=== PATIENT | male | born 1930 | race Caucasian/White ===

== ENCOUNTER 2017-03-01 18:34 | Inpatient (IN) ==
--- NOTE | 2017-03-01 18:37 | Emergency Department Note ---
Disposition Clinical Impression: Chest pain, Elevated troponin Disposition: Admitted As Inpatient Condition: Good General Adult HPI - General Chief complaint: ED Chest Pain Stated complaint: CP Time Seen by Provider: 03/01/17 18:36 - Related Data Home Medications Medication Instructions Recorded Confirmed Calcium Carbonate/Vitamin D3 1 each PO DAILY 04/18/16 04/18/16 [Calcium 600 + Vit D Softgel] Glucosamn/Condroitn/C/Mn/[place] 1 each PO DAILY 04/18/16 04/18/16 [Cvs Glucosamine Chondroitin Tb] Multivitamin [Multi-Day Vitamins] 1 each PO DAILY 04/18/16 04/18/16 Allergies Allergy/AdvReac Type Severity Reaction Status Date / Time codeine AdvReac Unknown other Verified 04/18/16 10:30 Course Vital Signs Temperature 98.2 F 03/01/17 18:38 Pulse Rate 63 03/01/17 18:38 Respiratory Rate 16 03/01/17 18:38 Blood Pressure 142/78 03/01/17 18:38 O2 Sat by Pulse Oximetry 96 03/01/17 18:38 Temperature 97.8 F 03/01/17 20:32 Pulse Rate 60 03/01/17 20:32 Respiratory Rate 16 03/01/17 20:32 Blood Pressure 145/83 03/01/17 20:32 O2 Sat by Pulse Oximetry 95 03/01/17 20:32 Oxygen Delivery Oxygen Delivery Room Air Medical Decision Making - Lab Data Result diagrams: 03/01/17 19:00 03/01/17 19:00 Lab Results 03/01/17 03/01/17 03/01/17 Range/Units 18:58 19:00 19:00 WBC 7.9 (4.3-11.1) K/mcL RBC 5.19 (4.19-5.50) M/mcL Hgb 15.8 (12.9-16.9) g/dL Hct 47.9 (37.5-50.1) % MCV 92.3 (83.0-100.0) fL MCH 30.4 (28.0-33.3) pg MCHC 33.0 (31.6-35.5) g/dL RDW 13.2 (11.5-14.5) % Plt Count 233 (140-400) K/mcL MPV 9.0 L (9.4-12.4) fL Immature Gran % 0.4 (0-4) % Seg Neutrophils % 66.3 % Lymphocytes % 23.3 % Monocytes % 7.3 % Eosinophils % 2.1 % Basophils % 0.6 % Neutrophils # 5.3 (1.6-8.9) K/mcL Lymphocytes # 1.9 (0.6-4.6) K/mcL Monocytes # 0.6 (0.0-1.3) K/mcL Eosinophils # 0.2 (0.0-0.6) K/mcL Basophils # 0.1 (0.0-0.2) K/mcL Immature Plt Fraction 2.2 (1.1-6.1) % PT 11.8 (9.4-12.1) Seconds INR 1.1 APTT 33.0 (26.0-36.0) Seconds Sodium 141 (136-145) mEq/L Potassium 4.0 (3.5-4.5) mEq/L Chloride 107 (98-109) mEq/L Carbon Dioxide 25 (19-29) mEq/L BUN 27 H (8-26) mg/dL Creatinine 1.22 (0.72-1.25) mg/dL Est GFR ( Amer) > 60 (> 60) Est GFR (Non-Af Amer) 57 L (> 60) BUN/Creatinine Ratio 22 (6-26) Glucose 103 H (70-99) mg/dL Calculated Osmolality 297 (280-300) Calcium 10.4 (8.6-10.8) mg/dL Troponin I (0-0.03) ng/mL 03/01/17 Range/Units 19:00 WBC (4.3-11.1) K/mcL RBC (4.19-5.50) M/mcL Hgb (12.9-16.9) g/dL Hct (37.5-50.1) % MCV (83.0-100.0) fL MCH (28.0-33.3) pg MCHC (31.6-35.5) g/dL RDW (11.5-14.5) % Plt Count (140-400) K/mcL MPV (9.4-12.4) fL Immature Gran % (0-4) % Seg Neutrophils % % Lymphocytes % % Monocytes % % Eosinophils % % Basophils % % Neutrophils # (1.6-8.9) K/mcL Lymphocytes # (0.6-4.6) K/mcL Monocytes # (0.0-1.3) K/mcL Eosinophils # (0.0-0.6) K/mcL Basophils # (0.0-0.2) K/mcL Immature Plt Fraction (1.1-6.1) % PT (9.4-12.1) Seconds INR APTT (26.0-36.0) Seconds Sodium (136-145) mEq/L Potassium (3.5-4.5) mEq/L Chloride (98-109) mEq/L Carbon Dioxide (19-29) mEq/L BUN (8-26) mg/dL Creatinine (0.72-1.25) mg/dL Est GFR ( Amer) (> 60) Est GFR (Non-Af Amer) (> 60) BUN/Creatinine Ratio (6-26) Glucose (70-99) mg/dL Calculated Osmolality (280-300) Calcium (8.6-10.8) mg/dL Troponin I 0.18 H* (0-0.03) ng/mL Critical Care Time Critical Care Time: Yes Total Critical Care Time: 30 Attestation: Patient presented with chest pain. Troponin elevated. Telephone consultation with the leather dresser. Low-dose heparin drip ordered. Admitted to the medicine service Attestation Statement - Attestation Attestation: I examined this patient and my medical decision-making was reviewed with the EXAMINATION GRADER/PA/Advanced Practice Nurse/Resident Physician. I agree with the documented findings, disposition and treatment plan as described except to the extent set forth below. [id number] time provided in conjunction with Dr. Landeros Patient presents via EMS from home with complaints of chest pain. Aspirin and nitroglycerin administered prehospital. EKG reviewed by me. Patient appears in no acute distress on exam
--- NOTE | 2017-03-01 18:46 | Emergency Department Note ---
Disposition Clinical Impression: Elevated troponin Chest pain Qualifiers: Chest pain type: unspecified Qualified Code(s): R07.9 - Chest pain, unspecified Disposition: Admitted As Inpatient Condition: Good Referrals: Partha Walker Jr, MD [Primary Care Provider] - Forms: ED Satisfaction Letter Time of Disposition: 19:45 Chest Pain HPI - General Chief Complaint: ED Chest Pain Stated Complaint: CP Time Seen by Provider: 03/01/17 18:36 Vital Signs Reviewed: Yes Nursing Notes Reviewed: Yes - History of Present Illness HPI Narrative: Patient planning of chest pain that began this morning. Was relieved with 3 nitroglycerin and 4 baby aspirin. States it started in his back and radiates up to his chest. Denies any cardiac history. He was arrested this began. Denies any Provoking factors. Denies any associated shortness of breath nausea vomiting or diaphoresis. - Related Data Home Medications Medication Instructions Recorded Confirmed Calcium Carbonate/Vitamin D3 1 each PO DAILY 04/18/16 04/18/16 [Calcium 600 + Vit D Softgel] Glucosamn/Condroitn/C/Mn/[place] 1 each PO DAILY 04/18/16 04/18/16 [Cvs Glucosamine Chondroitin Tb] Multivitamin [Multi-Day Vitamins] 1 each PO DAILY 04/18/16 04/18/16 Allergies Allergy/AdvReac Type Severity Reaction Status Date / Time codeine AdvReac Unknown other Verified 04/18/16 10:30 All systems ED: reviewed and negative except as stated. Constitutional: Denies: fever, chills ENT ED: Denies: ear pain, throat pain, congestion Cardiovascular: Reports: chest pain (Started in his back radiated to his chest.) . Denies: palpitations, dyspnea on exertion, syncope Respiratory: Denies: cough, dyspnea, wheezes Gastrointestinal: Denies: abdominal pain, nausea, vomiting, diarrhea, hematemesis, melena, hematochezia Genitourinary: Denies: urgency, dysuria, frequency Musculoskeletal: Reports: back pain (Between the shoulder blades.). Denies: neck pain Integumentary: Denies: rash, abrasion Neurological: Denies: headache, weakness Chest Pain PMH - Past Medical History Medical history: Reports: other (Lymphoma) Physical Exam - General Limitations: no limitations General appearance: alert, in no apparent distress - Head Head exam: atraumatic, normocephalic, normal inspection - Eye Eye exam: Present: normal appearance, PERRL, EOMI. Absent: scleral icterus - ENT ENT exam: normal exam, normal oropharynx, mucous membranes moist - Neck Neck exam: Present: normal inspection, full ROM, trachea midline. Absent: tenderness, lymphadenopathy - Chest Chest inspection: Present: normal inspection, symmetric chest wall rise. Absent : tenderness - Respiratory Respiratory exam: Present: normal lung sounds bilaterally. Absent: respiratory distress - Cardiovascular Cardiovascular exam: Present: regular rate, normal rhythm, normal heart sounds - Abdominal Exam Abdominal exam: Present: soft, Non-Tender, normal bowel sounds. Absent: tenderness, distention, guarding, rebound, rigidity, organomegaly - Extremities Exam Extremities exam: Present: normal inspection, full ROM, normal capillary refill. Absent: tenderness, pedal edema - Back Exam Back exam: Present: normal inspection, full ROM, other (No pain on palpation. Cannot reproduce his back pain.). Absent: tenderness, CVA tenderness (R), CVA tenderness (L), muscle spasm, paraspinal tenderness - Neurological Exam Neurological exam: Present: alert, oriented X3 - Psychiatric Psychiatric exam: Present: normal affect, normal mood - Skin Skin exam: Present: warm, dry, intact, normal color. Absent: rash, cyanosis, diaphoresis Course Course Narrative: Patient brought in by EMS with the complaints of chest pain. He states he woke up this morning with pain in his back that radiated down to his left chest. States that he has been seeing Drs. Nation for this but has not had a cardiac workup yet. He has an appointment next week. He states he did take 3 nitroglycerin and 4 baby aspirin prior to arrival here with relief of the pain. He states it still aches in his back. He is refusing pain medication at this time. We will do a cardiac workup on the patient while he is here. We will Likely admit him. On exam his lung sounds are clear heart tones are normal and abdomen is soft and nontender. He does have a history of lymphoma. He states he has no other cardiac histories. He has no edema to his extremities. He denies any shortness of breath or diaphoresis associated with this chest pain. - Reevaluation(s) Reevaluation #1: Patient does not have active chest pain at this time. However his troponin is increased. He also has ST depression and T-wave inversion in leads V4 and V5. We will contact the on-call health information managers to discuss this with her. Patient will be admitted to the hospital. Time: 19:36 Reevaluation #2: After speaking with a health information managers she recommends to heparinize the patient. His platelets are normal and hemoglobin is normal. He has no signs of active bleeding. We will heparinize him and admitted to the hospitalist. Time: 19:44 - Consultations Consultation #1: Spoke with Dr. Nation. She suggests that we start the Pt on a Heparin drip and admitted to the hospitalist. Time: 19:43 Vital Signs Temperature 98.2 F 03/01/17 18:38 Pulse Rate 63 03/01/17 18:38 Respiratory Rate 16 03/01/17 18:38 Blood Pressure 142/78 03/01/17 18:38 O2 Sat by Pulse Oximetry 96 03/01/17 18:38 Temperature 98.2 F 03/01/17 18:38 Pulse Rate 62 03/01/17 19:29 Respiratory Rate 16 03/01/17 19:29 Blood Pressure 109/65 03/01/17 19:29 O2 Sat by Pulse Oximetry 94 03/01/17 19:29 Oxygen Delivery Oxygen Delivery Nasal Cannula Chest Pain - Medical Records Medical records reviewed: Yes I reviewed the patient's medical records. - Lab Data Lab results reviewed: Yes I reviewed the patient's lab results. Result diagrams: 03/01/17 19:00 03/01/17 19:00 Lab Results 03/01/17 03/01/17 03/01/17 Range/Units 19:00 19:00 19:00 WBC 7.9 (4.3-11.1) K/mcL RBC 5.19 (4.19-5.50) M/mcL Hgb 15.8 (12.9-16.9) g/dL Hct 47.9 (37.5-50.1) % MCV 92.3 (83.0-100.0) fL MCH 30.4 (28.0-33.3) pg MCHC 33.0 (31.6-35.5) g/dL RDW 13.2 (11.5-14.5) % Plt Count 233 (140-400) K/mcL MPV 9.0 L (9.4-12.4) fL Immature Gran % 0.4 (0-4) % Seg Neutrophils % 66.3 % Lymphocytes % 23.3 % Monocytes % 7.3 % Eosinophils % 2.1 % Basophils % 0.6 % Neutrophils # 5.3 (1.6-8.9) K/mcL Lymphocytes # 1.9 (0.6-4.6) K/mcL Monocytes # 0.6 (0.0-1.3) K/mcL Eosinophils # 0.2 (0.0-0.6) K/mcL Basophils # 0.1 (0.0-0.2) K/mcL Immature Plt Fraction 2.2 (1.1-6.1) % Sodium 141 (136-145) mEq/L Potassium 4.0 (3.5-4.5) mEq/L Chloride 107 (98-109) mEq/L Carbon Dioxide 25 (19-29) mEq/L BUN 27 H (8-26) mg/dL Creatinine 1.22 (0.72-1.25) mg/dL Est GFR ( Amer) > 60 (> 60) Est GFR (Non-Af Amer) 57 L (> 60) BUN/Creatinine Ratio 22 (6-26) Glucose 103 H (70-99) mg/dL Calculated Osmolality 297 (280-300) Calcium 10.4 (8.6-10.8) mg/dL Troponin I 0.18 H* (0-0.03) ng/mL - Radiology Data Radiology results reviewed: Yes I reviewed the patient's radiology results. Chest X-Ray 03/01/17 18:41 IMPRESSION: No acute process. D/ / John Araya MD / John Araya MD Interpreting Provider: John Araya MD - EKG Data EKG attestation: Yes I reviewed and interpreted this EKG. EKG results narrative: Normal sinus rhythm at a rate of 63. The ND interval is 156. QRS duration is 139. QT is 399. QTC is 407. Patient has had a right bundle gale block. He has new ST depression and T-wave inversion in leads V4 and V5. There are no other changes from previous EKG dated 12/08/2013. Heart Score - Score History: Moderately Suspicious EKG: Significant ST-Depression Age: Greater than 65 Risk Factors: No risk factors known Troponin: 1-3x normal limit HEART Score Total: 6
[2017-03-01 19:14] LABS: Basophils # 0.1 K/mcL (0.0-0.2); Basophils % 0.6 %; Eosinophils # 0.2 K/mcL (0.0-0.6); Eosinophils % 2.1 %; Hematocrit 47.9 % (37.5-50.1); Hemoglobin 15.8 g/dL (12.9-16.9); Immature Granulocytes % 0.4 % (0-4); Immature Platelets 2.2 % (1.1-6.1); Lymphocytes # 1.9 K/mcL (0.6-4.6); Lymphocytes % 23.3 %; Mean Corpuscular Hemoglobin 30.4 pg (28.0-33.3); Mean Corpuscular Volume 92.3 fL (83.0-100.0); Monocytes # 0.6 K/mcL (0.0-1.3); Monocytes % 7.3 %; Neutrophils # 5.3 K/mcL (1.6-8.9); Platelet Count 233 K/mcL (140-400); Red Blood Count 5.19 M/mcL (4.19-5.50); Red Cell Distribution Width 13.2 % (11.5-14.5); Segmented Neutrophils % 66.3 %
[2017-03-01 19:25] LABS: BUN/Creatinine Ratio 22 (6-26); Blood Urea Nitrogen 27 mg/dL (8-26); Calcium 10.4 mg/dL (8.6-10.8); Carbon Dioxide 25 mEq/L (19-29); Chloride 107 mEq/L (98-109); Glucose 103 mg/dL (70-99); Osmolality,Calculated 297 (280-300); Sodium 141 mEq/L (136-145); eGFR For African Americans > 60 (> 60); eGFR For Non-African Americans 57 (> 60)
[2017-03-01] MEDS ORDERED: *HR* Heparin 5,000 UNIT/ML VIAL IVP PRN ×2 (19:42)
[2017-03-01] MEDS ORDERED: Heparin 25,000 UNIT/500 ML D5W 25,000 UNIT/500 ML MLS IVC SCH (19:45)
[2017-03-01 20:04] LABS: INR 1.1; Prothrombin Time 11.8 Seconds (9.4-12.1)
[2017-03-01] MEDS ORDERED: Aspirin 325 MG TABLET PO ONE (21:25)
[2017-03-01] MEDS ORDERED: Naloxone 0.4 MG/ML INJ IVP PRN (21:26)
[2017-03-01] MEDS ORDERED: *HR* Morphine 2 MG/ML SYRINGE IVP PRN (21:26)
[2017-03-01] MEDS ORDERED: Ondansetron 4 MG/2 ML VIAL IVP PRN (21:26)
[2017-03-01] MEDS ORDERED: Nitroglycerin 0.4 MG TAB.SUBL SL PRN (21:33)
[2017-03-01] MEDS ORDERED: Melatonin 3 MG TABLET PO PRN (22:20)
[2017-03-01] MEDS ORDERED: *HR* Ticagrelor 90 MG TABLET PO ONE ×2 (23:22→23:45)
--- NOTE | 2017-03-01 23:27 | Event Note ---
Date of Encounter: 03/01/17 Time of Encounter: 23:22 I examined this patient and my medical decision-making was reviewed with . I agree with the documented findings, disposition and treatment plan as described except to the extent set forth below. Briefly, 86-year-old with no significant past medical history except lymphoma for which he received surgery and chemotherapy about 9 years ago presented to the hospital due to back pain. In the emergency room, further workup revealed EKG changes with ST depressions in lateral leads and elevated troponin level. Cardiology was consulted and the patient is been heparinized for non-STEMI. He has been admitted for the same. On exam, the patient was playing banjo and singing when I entered the room. Clear breath sounds bilaterally. No reproducible chest wall tenderness. First and second heart sounds present. Regular rate and rhythm. EKG personally reviewed-ST depressions of more than 2 mm in V3 to V5 with T- wave inversions in leads V3 to V6. Labs reviewed. Assessment/plan: 1. Keq-[id number] score of 5. Patient will be admitted to the hospital to inpatient status. Telemetry. Expected to be in the hospital for at least 2 midnights. Expected discharge disposition is to home. High risk due to risk of lethal arrhythmias and the need to be on heparin drip which needs close monitoring and adjustment of the dose. Continue aspirin, statin, Plavix and heparin. Hold beta porfirio due to borderline low heart rate. Cardiology consult. Echocardiogram. Possible left heart catheter tomorrow. 2. History of lymphoma 3. Full code ASH [place]
--- NOTE | 2017-03-01 23:33 | Internal Med History&Physical ---
Date of Encounter: 03/01/17 Time of Encounter: 23:30 Assessment and Plan (1) NSTEMI (non-ST elevated myocardial infarction) Current visit: Yes Status: Acute Patient presents with typical chest pain, elevated troponin at 0.18, EKG showing ST depression in leads V2 through V6, most pronounced in leads V4 and V5.. CARLITOS score 5 making him high risk likely requiring angiography. Patient took aspirin 325 mg prior to arrival. Patient is on heparin drip, will give Brilinta 180 mg once. Transient prominence, echo ordered. Cardiology consult, patient will likely require left heart cath tomorrow. We will make nothing by mouth at midnight. (2) Lymphoma Current visit: Yes Status: Acute In remission. Currently not undergoing treatment. Qualifiers: Lymphoma type: unspecified type Lymphoma site: unspecified region Qualified Code(s): C85.90 - Non-Hodgkin lymphoma, unspecified, unspecified site (3) DVT prophylaxis Current visit: Yes Status: Acute Patient is on therapeutic heparin drip so there is no indication for prophylaxis at this time Internal Medicine - H&P: HPI Chief complaint: Chest pain Admitted From: Emergency Dept Plans for Post Hospital Care: Home History of present illness: Mr. Garcia is a 86 year old male with history of lymphoma presents with chest discomfort. Patient states this pain began this morning while he was sitting watching TV. He states the pain initially began on the left side of his back and radiated around to the left side of his chest. Patient states that the pain worsened throughout the day and he eventually took nitroglycerin which greatly improved his pain. Patient states he did not get up and exert himself much today but the pain did not seem to change with exertion. He could not characterize the pain any further. He denies shortness of breath, diaphoresis, nausea, vomiting. Patient states he had a pain in the right side of his chest approximately 2 weeks ago that does not feel similar to this. He saw his PCP at that time he was concerned for cardiac origin of his chest pain. Denies fever, chills, abdominal pain, nausea, vomiting, diarrhea, dysuria, lower extremity swelling. Past Med Surg Social Fam HX - Past Medical History Medical history: arthritis, cancer, coronary artery disease, hypertension, other Psychiatric history: no psych history - Past Surgical History Surgical History: cancer surgery (Removal of small bowel obstruction due to lymphoma) - Social History Smoking Status: Never smoker Smokeless Tobacco Status: No Alcohol use: none Drug use: none - Family History Mother History Unknown: Yes Name: Perry Gomez Age at : 82 Internal Medicine - H&P: Meds Calcium Carbonate/Vitamin D3 [Calcium 600 + Vit D Softgel] 1 each PO DAILY 04/18 [History] Glucosamn/Condroitn/C/Mn/[place] [Cvs Glucosamine Chondroitin Tb] 1 each PO DAILY 04/18/16 [History] Multivitamin [Multi-Day Vitamins] 1 each PO DAILY 04/18/16 [History] Allergies codeine Adverse Reaction (Unknown, Verified 04/18/16 10:30) other feels like he is floating All Systems PM: A 10-system review of systems was performed and is negative for pertinent findings except as documented above in the HPI. - Constitutional Constitutional: no chills, no fever(s) - EENT Eyes: no blurry vision, no change in vision Nose, mouth and throat: no sinus pain, no sinus pressure, no sore throat - Cardiovascular Cardiovascular ROS IM: chest pain, no dyspnea, no edema, no lightheadedness, no palpitations, no syncope - Respiratory Respiratory: no cough, no dyspnea, no hemoptysis, no chest congestion, no excessive phlegm production, no change in phlegm color - Gastrointestinal Gastrointestinal: no abdominal pain, no diarrhea, no nausea, no vomiting - Genitourinary Genitourinary ROS male: no dysuria, no hematuria - Musculoskeletal Musculoskeletal ROS IM: no numbness, no tingling - Neurological Neurological ROS: no numbness, no tingling - Psychiatric Psychiatric: no anxiety, no depression - Hematologic/Lymphatic Hematologic/Lymphatic: no easy bleeding, no easy bruising - Constitutional Vitals: Temp Pulse Resp BP Pulse Ox 97.8 F 60 16 145/83 95 03/01/17 20:32 03/01/17 20:32 03/01/17 20:32 03/01/17 20:32 03/01/17 21:06 General appearance: Present: A&O X 3, pleasant, no acute distress - Head Head exam: Present: atraumatic, normal inspection, normocephalic - Eye Eye exam: Present: EOMI, PERRL - ENT ENT exam: Present: mucous membranes moist - Neck Neck exam general surgery: Present: full ROM. Absent: tenderness - Respiratory Respiratory exam: Present: CTAB. Absent: rales, rhonchi, wheezes - Cardiovascular Cardiovascular exam: Present: RRR. Absent: gallop, rubs, systolic murmur - GI/Abdominal GI/Abdominal exam: Present: normal bowel sounds, soft. Absent: distended, tenderness - Extremities Exam Extremities exam: Present: warm. Absent: pedal edema, tenderness - Neurological Exam Neurological exam: Present: alert, CN II-XII intact, oriented X3, no focal deficits - Skin Skin exam: Present: dry, intact, warm Internal Med - H&P Results - Labs CBC & Chem 7: 03/01/17 19:00 03/01/17 19:00
[2017-03-02 02:13] LABS: Basophils # 0.1 K/mcL (0.0-0.2); Basophils % 0.7 %; Eosinophils # 0.2 K/mcL (0.0-0.6); Eosinophils % 2.5 %; Hematocrit 45.6 % (37.5-50.1); Hemoglobin 15.6 g/dL (12.9-16.9); Immature Granulocytes % 0.2 % (0-4); Lymphocytes # 2.8 K/mcL (0.6-4.6); Lymphocytes % 34.6 %; Mean Corpuscular HGB Conc 34.2 g/dL (31.6-35.5); Mean Corpuscular Hemoglobin 31.1 pg (28.0-33.3); Mean Corpuscular Volume 90.8 fL (83.0-100.0); Mean Platelet Volume 9.2 fL (9.4-12.4); Monocytes # 0.6 K/mcL (0.0-1.3); Monocytes % 7.7 %; Neutrophils # 4.4 K/mcL (1.6-8.9); Platelet Count 195 K/mcL (140-400); Red Blood Count 5.02 M/mcL (4.19-5.50); Red Cell Distribution Width 13.3 % (11.5-14.5); Segmented Neutrophils % 54.3 %
[2017-03-02 02:20] LABS: INR 1.2; Prothrombin Time 12.9 Seconds (9.4-12.1)
[2017-03-02 02:25] LABS: BUN/Creatinine Ratio 19 (6-26); Blood Urea Nitrogen 23 mg/dL (8-26); Calcium 10.1 mg/dL (8.6-10.8); Carbon Dioxide 25 mEq/L (19-29); Chloride 108 mEq/L (98-109); Glucose 111 mg/dL (70-99); Magnesium 2.2 mg/dL (1.6-2.6); Osmolality,Calculated 298 (280-300); Potassium 3.5 mEq/L (3.5-4.5); Sodium 142 mEq/L (136-145); eGFR For African Americans > 60 (> 60); eGFR For Non-African Americans 58 (> 60)
[2017-03-02 03:01] LABS: Hemoglobin A1C 5.6 %
--- NOTE | 2017-03-02 08:49 | Internal Med Progress Note ---
<Albert Farrar - Last Filed: 03/02/17 14:28> Date of Encounter: 03/02/17 Time of Encounter: 08:40 - Assessment and plan (1) NSTEMI (non-ST elevated myocardial infarction) Current Visit: Yes Status: Acute Assessment and plan: Troponin 0.18, 0.16. With non-specific ST/T wave changes on EKG. Pain started after waking up, worse with exertion, pain located between shoulders. Seen by Cardiology. Planning for LHC today. Echocardiogram pending. Continue heparin gtt, asa, and statin. Will start low dose betablocker. 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 (2) Lymphoma Current Visit: Yes Status: Acute Assessment and plan: Stable, noted to be in remission for 9 years. Qualifiers: Lymphoma type: unspecified type Lymphoma site: unspecified region Qualified Code(s): C85.90 - Non-Hodgkin lymphoma, unspecified, unspecified site (3) HLD (hyperlipidemia) Current Visit: Yes Status: Chronic Assessment and plan: Risk factor modification. Continue statin. Qualifiers: Hyperlipidemia type: mixed hyperlipidemia Qualified Code(s): E78.2 - Mixed hyperlipidemia (4) DVT prophylaxis Current Visit: Yes Status: Acute Assessment and plan: Patient on heparin drip. - Time Spent With Patient less than 15 minutes - Subjective Interval history: Patient admitted for NSTEMI, seen by cardiology. States pain is better then prior to admission, but is still present in his back (between shoulders). Notes history (years) of right sided chest pain. PCP referred patient to cardio recently for concerns of cardiac issues. Held nitro at home that improved chest pain. He denies any shortness of breath, notes chest pain is worse with deep breath. Denies dizziness, vision changes, vomiting. - Constitutional Vitals: Temp Pulse Resp BP Pulse Ox 97.8 F 67 17 133/78 94 03/02/17 07:00 03/02/17 07:00 03/02/17 07:00 03/02/17 07:00 03/02/17 07:00 General appearance: Present: cooperative, A&O X 3, pleasant, no acute distress, answers questions appropriately - Head Head exam: Present: atraumatic, normocephalic - Eye Eye exam: Present: EOMI, conjuntiva pink - ENT ENT exam: Present: mucous membranes moist - Neck Neck exam general surgery: Present: full ROM, supple - Respiratory Respiratory exam: Present: CTAB - Cardiovascular Cardiovascular exam: Present: RRR. Absent: tachycardia - GI/Abdominal GI/Abdominal exam: Present: hyperactive bowel sounds, soft. Absent: firm, guarding, tenderness - Extremities Exam Extremities exam: Absent: pedal edema, tenderness - Neurological Exam Neurological exam: Present: alert, oriented X3, no focal deficits. Absent: speech deficit - Psychiatric Psychiatric exam: Present: normal affect, normal mood - Skin Skin exam: Present: dry, normal color, warm. Absent: cyanosis, rash Internal Medicine: Result - Labs CBC & Chem 7: 03/02/17 01:54 03/02/17 01:54 Labs: Short CBC 03/02/17 Range/Units 01:54 WBC 8.1 (4.3-11.1) K/mcL Hgb 15.6 (12.9-16.9) g/dL Hct 45.6 (37.5-50.1) % Plt Count 195 (140-400) K/mcL Neutrophils # 4.4 (1.6-8.9) K/mcL BMP 03/02/17 01:54 Sodium 142 Potassium 3.5 Chloride 108 Carbon Dioxide 25 BUN 23 Creatinine 1.19 Glucose 111 H Calcium 10.1 Cardiac Enzymes 03/02/17 03/02/17 Range/Units 01:54 07:20 Troponin I 0.16 H* 0.16 H* (0-0.03) ng/mL - ABG Interpretation ABG results: PT/INR, D-dimer PT 12.9 Seconds (9.4-12.1) H 03/02/17 01:54 Consult Discharge Plan - Plan Referrals: Partha Walker Jr, MD [Primary Care Provider] - <Priyank Samayoa P - Last Filed: 03/02/17 16:55> Date of Encounter: 03/02/17 - Constitutional Vitals: Temp Pulse Resp BP Pulse Ox 97.6 F 63 15 119/67 92 03/02/17 16:00 03/02/17 16:00 03/02/17 16:00 03/02/17 16:00 03/02/17 16:00 Internal Medicine: Result - Labs CBC & Chem 7: 03/02/17 01:54 03/02/17 01:54 Labs: Short CBC 03/02/17 Range/Units 01:54 WBC 8.1 (4.3-11.1) K/mcL Hgb 15.6 (12.9-16.9) g/dL Hct 45.6 (37.5-50.1) % Plt Count 195 (140-400) K/mcL Neutrophils # 4.4 (1.6-8.9) K/mcL BMP 03/02/17 01:54 Sodium 142 Potassium 3.5 Chloride 108 Carbon Dioxide 25 BUN 23 Creatinine 1.19 Glucose 111 H Calcium 10.1 Cardiac Enzymes 03/02/17 03/02/17 Range/Units 01:54 07:20 Troponin I 0.16 H* 0.16 H* (0-0.03) ng/mL - ABG Interpretation ABG results: PT/INR, D-dimer PT 12.9 Seconds (9.4-12.1) H 03/02/17 01:54 - Attending Attestation I examined this patient and my medical decision-making was reviewed with the EDITOR SCHOOL PHOTOGRAPH/PA/Advanced Practice Nurse/Resident Physician. I agree with the documented findings, disposition and treatment plan as described except to the extent set forth below. Cardiology input appreciated. Awaiting for cardiothoracic evaluation.
--- NOTE | 2017-03-02 09:55 | Cardiology Consult Note ---
<Lona Henry - Last Filed: 03/02/17 09:58> Date of Encounter: 03/02/17 Time of Encounter: 09:00 Assessment and Plan (1) NSTEMI (non-ST elevated myocardial infarction) Current Visit: Yes Status: Acute Troponin 0.18, 0.16. Non-specific ST/T wave changes. Atypical/typical chest pain symptoms. Chest pain free upon exam. Recommend LHC with possible PCI; alternatives, risks, and benefits discussed, he is agreeable to proceed. Continue heparin gtt, asa, and statin. Will start low dose betablocker. Keep NPO except medications, echocardiogram pending. Will further discuss and review with Dr. Nation. (2) HLD (hyperlipidemia) Current Visit: Yes Status: Chronic Continue statin, risk factor modification. Qualifiers: Hyperlipidemia type: mixed hyperlipidemia Qualified Code(s): E78.2 - Mixed hyperlipidemia Discussion w patient/family: The assessment and plan as outlined above was discussed with the patient and/or family members who expressed understanding and agreement. All questions were answered. Thank you for involving us in the care of your patient. Please call with any questions. The patient will be discussed and reviewed with Dr. Nation; changes to be made accordingly. History of Present Illness Consult date: 03/02/17 Requesting physician: Edmundo Cooley Consult reason: NSTEMI Chief complaint: Chest pain History of present illness: Mr. Garcia is a 86 year old male with PMH significant for lymphoma (has been in remission x9 years), HLD, and gastritis who presented to the ED with 1-day history of left-sided chest pain that started yesterday morning shortly after waking up. He reports pain initially started at left shoulder blade with radiation across chest. Denies exacerbating or provoking factors, denies accompanying symptoms. Reports improvement in symptoms after x4 baby ASA and x3 NTG tabs. He was recently seen in the outpatient setting by Dr. Nation--stress test/echo were ordered however not yet obtained. Past Med Surg Social Fam HX - Past Medical History Attestation: Yes The following information was validated with the patient. Source: patient, obtained from family Medical history: arthritis, cancer, hyperlipidemia, other (gastritis) Psychiatric history: no psych history - Past Surgical History Surgical History: cancer surgery (Removal of small bowel obstruction due to lymphoma) - Social History Smoking Status: Never smoker Smokeless Tobacco Status: No Alcohol use: none Drug use: none - Family History Mother History Unknown: Yes Name: Perry Gomez Age at : 82 Medications and Allergies Calcium Carbonate/Vitamin D3 [Calcium 600 + Vit D Softgel] 1 tab PO DAILY [History] Glucosamn/[place]/C/Mn/[place] [Cvs Glucosamine Chondroitin Tb] 1 tab PO DAILY 04/18/16 [History] Multivitamin [Multi-Day Vitamins] 1 tab PO DAILY 04/18/16 [History] Aspirin 81 mg PO DAILY 03/02/17 [History] L. Acidophilus/Pectin, [place] [Acidophilus Probiotic Capsule] 1 cap PO DAILY [History] Nitroglycerin [Nitrostat] 0.4 mg SL AD PRN 03/02/17 [History] Allergies codeine Adverse Reaction (Unknown, Verified 04/18/16 10:30) other feels like he is floating All Systems Review: A 10-system review of systems was performed and is negative for pertinent findings except as documented above in the HPI. - Cardiovascular Cardiovascular: as per HPI Physical Examination Vital Signs, Last 4 Hours Temp Pulse Resp BP Pulse Ox 03/02/17 07:00 97.8 F 67 17 133/78 94 General: Conversant, No Apparent Distress HEENT: Atraumatic, Normocephaly, Mucus Membranes Moist Neck: No JVD, Normal carotid pulses Cardiac: Reg Rate and Rhythm, Normal S1 and S2, No Murmur Lungs: Normal Breath Sounds, No Wheeze, Rales, Rhonchi Neuro: Alert and responsive, No focal deficits noted Abdomen: Soft, Non-Tender Skin: No rashes noted on visualized skin Musculoskeletal: No Chest Wall Tenderness Extremities: No Clubbing, No Cyanosis, No Edema, Normal Pulses Results 03/02/17 01:54 03/02/17 01:54 Lab Results 03/02/17 03/02/17 03/02/17 01:54 01:54 01:54 WBC 8.1 Hgb 15.6 Hct 45.6 Plt Count 195 INR 1.2 APTT Sodium Potassium Chloride Carbon Dioxide BUN Creatinine Glucose Calcium Magnesium Troponin I 0.16 H* 03/02/17 03/02/17 03/02/17 01:54 01:54 07:20 WBC Hgb Hct Plt Count INR APTT 62.1 H D Sodium 142 Potassium 3.5 Chloride 108 Carbon Dioxide 25 BUN 23 Creatinine 1.19 Glucose 111 H Calcium 10.1 Magnesium 2.2 Troponin I 0.16 H* Active Medications Aspirin (Aspirin) 81 mg PO DAILY ERIK Stop: 09/01/17 09:01 Atorvastatin Calcium (Lipitor) 40 mg PO HS ERIK Stop: 08/31/17 21:31 Last Admin: 03/01/17 23:35 Dose: 40 mg Heparin Sodium (Porcine) (Heparin) 4,000 unit IVP Q6HR PRN PRN Reason: SEE COMMENTS Stop: 08/31/17 19:43 Heparin Sodium (Porcine) (Heparin) 2,000 unit IVP Q6H PRN PRN Reason: SEE COMMENTS Stop: 08/31/17 19:43 Heparin Sodium/Dextrose (Heparin 25,000 Unit/500 Ml D5w) 25,000 unit in 500 mls @ 19.997 mls/hr IVC .Q24H ERIK; 11.98 UNIT/KG/HR PRN Reason: Protocol Stop: 08/31/17 19:46 Last Titration: 03/02/17 03:46 Dose: 12 unit/kg/hr, 20.031 mls/hr Melatonin (Melatonin) 3 mg PO HS PRN PRN Reason: Insomnia Stop: 08/31/17 22:21 Metoprolol Succinate (Toprol Xl) 12.5 mg PO DAILY ERIK Stop: 09/01/17 10:01 Naloxone HCl (Narcan) 0.4 mg IVP Q2MIN PRN PRN Reason: Opioid Reversal Stop: 08/31/17 21:27 Nitroglycerin (Nitroglycerin) 0.4 mg SL Q5MIN PRN PRN Reason: Chest Pain Stop: 08/31/17 21:34 Ondansetron HCl (Zofran) 4 mg IVP Q8HR PRN PRN Reason: Nausea And Vomiting Stop: 08/31/17 21:27 - Imaging and Cardiology Echo: pending Other Results: 12 hour tele: avg HR=66. No significant events noted. - EKG Interpretation EKG results cardiology: personally reviewed Consult Discharge Plan - Plan Referrals: Partha Walker Jr, MD [Primary Care Provider] - <Krista Nation - Last Filed: 03/02/17 13:05> Date of Encounter: 03/02/17 Assessment and Plan Discussion w patient/family: The assessment and plan as outlined above was discussed with the patient and/or family members who expressed understanding and agreement. All questions were answered. Thank you for involving us in the care of your patient. Please call with any questions. History of Present Illness History of present illness: Mr. Garcia is a 86 year old male All Systems Review: A 10-system review of systems was performed and is negative for pertinent findings except as documented above in the HPI. Results 03/02/17 01:54 03/02/17 01:54 Lab Results 03/02/17 03/02/17 03/02/17 01:54 01:54 01:54 WBC 8.1 Hgb 15.6 Hct 45.6 Plt Count 195 INR 1.2 APTT Sodium Potassium Chloride Carbon Dioxide BUN Creatinine Glucose Calcium Magnesium Troponin I 0.16 H* 03/02/17 03/02/17 03/02/17 01:54 01:54 07:20 WBC Hgb Hct Plt Count INR APTT 62.1 H D Sodium 142 Potassium 3.5 Chloride 108 Carbon Dioxide 25 BUN 23 Creatinine 1.19 Glucose 111 H Calcium 10.1 Magnesium 2.2 Troponin I 0.16 H* 03/02/17 08:22 WBC Hgb Hct Plt Count INR APTT 78.5 H Sodium Potassium Chloride Carbon Dioxide BUN Creatinine Glucose Calcium Magnesium Troponin I - Attending Attestation I examined this patient and my medical decision-making was reviewed with the TRANSPORT ANALYST/PA/Advanced Practice Nurse/Resident Physician. I agree with the documented findings, disposition and treatment plan. Mr. Garcia was just evaluated in the outpatient Cardiology setting as a new visit for chest pain. He described atypical and typical symptoms at that time and the plan was for stress testing. He presents today with an episode of chest pain and now has troponin elevation and diagnosis of NSTEMI. Given this, we have recommended proceeding with [facility]. The R/B/A of the procedure were discussed with the patient who expressed understanding and agreement to proceed.
[2017-03-02] MEDS: Metoprolol XL (24 HR) Succ 25 MG TAB.ER.24H PO SCH (10:47)
[2017-03-02] MEDS: Aspirin 81 MG TAB.CHEW PO SCH (10:47)
[2017-03-02] MEDS ORDERED: 0.9 % Sodium Chloride 1,000 ML ONE (11:28)
[2017-03-02] MEDS ORDERED: *HR* Heparin 10,000 UNIT/10 ML VIAL ONE (11:29)
[2017-03-02] MEDS ORDERED: Nitroglycerin 1,000 MCG/10 ML VIAL IV ONE (11:29)
[2017-03-02] MEDS ORDERED: Verapamil 5 MG/2 ML VIAL ONE (11:29)
[2017-03-02] MEDS ORDERED: Heparin 1,000 UNITS/500 mL NS 500 ML ONE (11:29)
[2017-03-02] MEDS ORDERED: *HR* FentaNYL (PF) 100 MCG/2 ML VIAL ONE (11:58)
[2017-03-02] MEDS ORDERED: *HR* Midazolam HCl 2 MG/2 ML VIAL ONE (11:58)
--- NOTE | 2017-03-02 12:02 | Pre-Sedation Evaluation ---
Pre-sedation evaluation - Pre-sedation checklist Date of procedure: 03/02/17 Procedure: [facility] Recent Vitals: Last Vital Signs Temp 97.8 F 03/02/17 07:00 Pulse 67 03/02/17 07:00 Resp 17 03/02/17 07:00 BP 133/78 03/02/17 07:00 Pulse Ox 94 03/02/17 07:00 H&P (including ROS) documented in medical record: Yes Previous reaction to sedatives/anesthetics: No Dietary Status: NPO after Midnight Dentition: No loose teeth or bridges ASA Classification *see protocol: CLASS II-Mild systemic disease Plan of Care: Pt appropriate candidate for procedure/moderate/conscious sedation , Risks/benefits of procedure/sedation discussed w/ patient/family
--- NOTE | 2017-03-02 12:47 | Invasive Diagnostic Lab Proc ---
Name: Matthew Garcia Date of Study: 03/02/2017 Date: 1930 Ht: 66.9in Medical Record#: [id number] Age: 86 Wt: 185.19lb Gender: Male BSA: 1.96 Order #: [id number] BMI: 29.07 Physicians Procedure Physician: Torin Roman MD, [facility] Referring MD: Referring MD: Staff Name Position Time In Anika Leo RT (R) Scrub 11:58 AM Maximo Pedroza RN Director Of Assisted Living 11:59 AM Criss Sims RN Monitor 11:59 AM Indications Indication Non-Stemi Procedures Performed Procedure L HRT ARTERY/VENTRICLE ANGIO Pre-Procedure Checklist Informed consent is complete signed and on chart. H\\T\\P is on chart. ID band is on and ID verified with patient. Patient NPO for procedure The procedure was described for the patient and questions were answered. ECG is on chart. Plan of Care Patient will tolerate the procedure without complications. Adequate level of comfort will be maintained. Hemodynamics will remain stable Patient will recover from procedure without complications. Respiratory function will be maintained. Cardiac rhythm will remain stable. Patient temperature will be maintained. Patient and/or family have verbalized understanding of the procedure. Patient Education Chief Complaint/Reason for Test: Cardiac Cath Developmental Category: Geriatric (65+ years) Developmentally Appropriate for Age: Yes Learning Barriers: None Education Needs: Plan of Care Education Method: Verbal Information Taught: Cardiac Cath Educational Evaluation: Able to repeat information Intravenous Access Time IV Size Location DC'd Fluid/Drip Rate Units RN 12:00 PM 20g 1 1/" Patent On Arrival Lt Antecubital 0.9NaCl 25 ml/hr Allergies CODEINE,HYDROCODONE Vital Signs Time BP (mmHg) HR (bpm) O2 Sat. RR (bpm) LOC 12:04 PM / % 4 = Oriented but drowsy 12:11 PM / % 5 = Fully awake and oriented or at pre-proc level 12:11 PM / % 5 = Fully awake and oriented or at pre-proc level 12:04 PM 157 / 78 58 98 % 13 12:08 PM 144 / 76 64 94 % 14 12:13 PM 134 / 75 63 95 % 15 12:18 PM 122 / 68 61 97 % 17 12:22 PM 102 / 58 66 93 % 13 12:23 PM 104 / 54 63 93 % 16 12:28 PM 115 / 55 62 93 % 12 Procedural Medications Time Medication Dose Units Method Given By 12:03 PM Oxygen 2 L/min nasal cannula Maximo Pedroza RN 12:03 PM Versed 2 mg Intravenous Maximo Pedroza RN 12:03 PM Fentanyl 50 mcg Intravenous Maximo Pedroza RN 12:15 PM Lidocaine 2% 0.5 ml Subcutaneous Torin Roman MD, [facility] ASA Classification: CLASS II- Mild systemic disease (i.e. well-controlled diabetes, hypertension, asthma, cigarette smoking) Liliana Score Preprocedure Postprocedure Activity 2- Moves 4 extremities sustained head lift Activity 2- Moves 4 extremities sustained head lift Circulation 2- SBP +/= 20 points of pre-anesthetic level Circulation 2- SBP +/= 20 points of pre-anesthetic level Consciousness 2- Awake and alert oriented x 3 Consciousness 2- Awake and alert oriented x 3 O2 Saturation 2- Able to maintain O2 satruation of 92% on room air O2 Saturation 2- Able to maintain O2 satruation of 92% on room air Respiratory 2- Able to deep breathe and cough well Respiratory 2- Able to deep breathe and cough well Total Score 10 Total Score 10 Contrast Agent: Isovue Diagnostic Contrast: 54 ml Total Contrast: 54 ml Fluoro Dose: 160 mGy Procedure Log Time Note Enter By 11:58 AM Pt arrived to lab analyst 2 at 11:58 ejohnson 11:58 AM Anika Leo RT (R) Position: Scrub Time in: 11:58 ejohnson 11:59 AM Maximo Pedroza RN Position: Director Of Assisted Living Time in: 11:59 ejohnson 11:59 AM Criss Sims RN Position: Monitor Time in: 11:59 ejohnson 11:59 AM Patient charges- Angio tray pack, Navilyst 3mm J, Pulse Oximetry and ACIST tubing and transducer ejohnson 11:59 AM Case Delayed No ejohnson 11:59 AM Hair removed from procedure site in procedure lab using clippers. Bilateral groin prepped with Chloraprep by Anika Leo RT (R), safety strap applied then patient was draped. Skin intact. ejohnson 11:59 AM ASA Class CLASS II- Mild systemic disease (i.e. well-controlled diabetes, hypertension, asthma, cigarette smoking) ejohnson 11:59 AM Meet and greet completed ejohnson 11:59 AM Sign in performed according to hospital policy. ejohnson 11:59 AM Procedure start 11:59 ejohnson 11:59 AM CathStat 12:03 PM Vitals capture started with the following parameters, Patient=Adult, Interval=5 min, Initial [place]uv[place]dd=179 mmHg, Deflation Rate=5 mmHg, Cuff placed on Right Arm 12:03 PM Recorded ECG: HR=67 Condition=Condition 1 12:03 PM Time: 12:03 Oxygen on at 2 L/min per nasal cannula by Maximo Pedroza RN ejwyestefania 12:03 PM Time: 12:03 Versed 2 mg Intravenous Given by Maximo Pedroza RNwyestefania 12:03 PM Time: 12:03 Fentanyl 50 mcg Intravenous Given by Maximo Pedroza RN ejwyestefania 12:04 PM HR=58 bpm, ZZBB=229/78 mmhg, SpO2=98.0 %, Resp=13 B/min, Comment=SR 12:04 PM Time: 12:04 Patient comfortable and pain free: Yes ejohnson 12:04 PM Time: 12:04LOC: 4 = Oriented but drowsy ejohnson 12:08 PM HR=64 bpm, GKCR=650/76 mmhg, SpO2=94.0 %, Resp=14 B/min, Comment=SR 12:11 PM Time: 12:11 Patient comfortable and pain free: Yes ejohnson 12:11 PM Time: 12:11LOC: 5 = Fully awake and oriented or at pre-proc level ejohnson 12:13 PM HR=63 bpm, QGJM=010/75 mmhg, SpO2=95.0 %, Resp=15 B/min, Comment=SR 12:14 PM Time out performed according to hospital policy ejohnson 12:15 PM Time: 12:15 0.5 ml Lidocaine 2% to right radial Subcutaneous Given by Torin Roman MD, [facility] ejohnson 12:18 PM HR=61 bpm, AHDA=452/68 mmhg, SpO2=97.0 %, Resp=17 B/min, Comment=SR 12:18 PM Access obtained by percutaneous puncture. 6Fr 10cm Terumo Glidesheath sheath placed in right Radial artery. [id number] ejohnson 12:19 PM 5Fr TIG catheter inserted over the wire DNC ejohnson 12:22 PM NIBP STAT measurement started. 12:22 PM LCA angiography performed in multiple views. ejohnson 12:22 PM HR=66 bpm, PDAL=583/58 mmhg, SpO2=93.0 %, Resp=13 B/min, Comment=SR 12:22 PM Recorded Pressure: Ao, HR=67, Condition=Condition 1 (Aorta) Ao 77/57/67 12:23 PM HR=63 bpm, RXCC=760/54 mmhg, SpO2=93.0 %, Resp=16 B/min, Comment=SR 12:23 PM Lesion found in Proximal LAD. Pre Stenosis: 100 Pre CARLITOS Flow: 0: No Flow/No perfusion ejohnson 12:24 PM Proximal Left Anterior Descending Coronary Artery with 100% stenosis. ejohnson 12:24 PM Recorded Pressure: Ao, HR=65, Condition=Condition 1 (Aorta) Ao 89/64/77 12:25 PM RCA angiography performed in multiple views. ejohnson 12:25 PM Coronary Dominance: right ejohnson 12:26 PM Lesion found in Mid RCA. Pre Stenosis: 50 Pre CARLITOS Flow: 3: Complete and Brisk Flow/Perfusion ejohnson 12:26 PM Lesion found in Distal RCA. Pre Stenosis: 80 Pre CARLITOS Flow: 3: Complete and Brisk Flow/Perfusion ejohnson 12:26 PM Lesion found in Mid Circumflex. Pre Stenosis: 80 Pre CARLITOS Flow: 3: Complete and Brisk Flow/Perfusion ejohnson 12:26 PM Time: 12:11 Patient comfortable and pain free: Yes ejohnson 12:26 PM Time: 12:11LOC: 5 = Fully awake and oriented or at pre-proc level ejohnson 12:27 PM Circumflex, Obtuse Marginal, Left Posterior Descending, and Left Posterolateral Coronary Arteries with 80 % stenosis. If graft is supplying this area, 0 % stenosis ejohnson 12:27 PM Recorded Pressure: LV, HR=75, Condition=Condition 1 (Left Ventricle) LV 106/4/12 12:27 PM Catheter selectively placed in left ventricle ejohnson 12:27 PM Bolus angiogram of left Ventricle complete: 12 ml/sec for a total of 35 mls ejohnson 12:28 PM Recorded Pressure: LV, Ao, HR=63, Condition=Condition 1 (Left Ventricle) LV 99/6/12, (Aorta) Ao 92/50/66 12:28 PM Circumflex, Obtuse Marginal, Left Posterior Descending, and Left Posterolateral Coronary Arteries with 95 % stenosis. ejohnson 12:28 PM HR=62 bpm, UIIX=602/55 mmhg, SpO2=93.0 %, Resp=12 B/min, Comment=SR 12:29 PM Lesion found in Proximal Circumflex. Pre Stenosis: 95 Pre CARLITOS Flow: 2: Partial Flow/Perfusion (> 1 but < 3) ejohnson 12:30 PM Lesion found in Mid Circumflex. Pre Stenosis: 70 Pre CARLITOS Flow: 2: Partial Flow/Perfusion (> 1 but < 3) ejohnson 12:30 PM Lesion found in 1st Marginal. Pre Stenosis: 95 Pre CARLITOS Flow: 2: Partial Flow/Perfusion (> 1 but < 3) ejohnson 12:31 PM Procedure completed at 12:31 ejohnson 12:31 PM Sign out completed: Radiation Dose 159.9 mGy Fluoro Time: 1.4 Isovue 370 - 200ml contrast 54 ml given by Torin Roman MD, [facility]. Complications: NoneCardiac Rehab Consult needed: NoConfirmed administered medications: Yes ejohnson 12:31 PM Arterial sheath pulled, Vasc Band closure device used and was Successful S/N. ejohnson 12:32 PM 11 ml air in Vasc Band. ejohnson 12:32 PM Post ECG NSR ejohnson 12:32 PM Post Blood Pressure 115/55 ejohnson 12:32 PM 12:32 Post Pulses Rt Radial 1+ ejohnson 12:32 PM Information taught Cardiac Cath and Vasc Band ejohnson 12:32 PM Education needs Plan of Care and Responsibilities of Patient in Care ejohnson 12:32 PM Learning barriers :None ejohnson 12:32 PM Education Methods Verbal ejohnson 12:32 PM Education evaluation Able to repeat information ejohnson 12:33 PM Site status No bleeding/hematoma - Rt Wrist as reported by Anika Leo RT (R) at 12:32 ejohnson 12:33 PM Vitals capture stopped. 12:34 PM Family placed in consult room. ejohnson 12:34 PM Complications: None ejohnson 12:38 PM Report given to Trinity WEBER Pt taken to 2NE Room #27. 12:38 ejohnson 12:38 PM Delay to floor No ejohnson 12:38 PM Patient out of room: 12:38 ejohnson Complications Complication None Hemodynamics Pressures Site Systolic/A Wave Diastolic/V Wave Mean AO 77 57 67 AO 89 64 77 LV 106 4 12 LV 99 6 12 AO 92 50 66 Post Procedure Information Blood Pressure: 115/55 mmHg Rhythm: NSR Post procedural instructions were given Surgery consult for CABG Closure Device Time Device Success/Fail 03/02/2017 12:30:00 PM Mechanical Compression Successful Site Checks Time Location Status Staff Sheath In? Note 12:32 PM Rt Wrist No bleeding/hematoma Anika Leo RT (R) Pulses Time Site Pre-Procedure Post-Procedure Note 03/02/2017 12:00:00 PM Bilateral DP \\T\\ PT 2+ 03/02/2017 12:00:00 PM Bilateral radial 2+ 12:32:00 PM Rt Radial 1+ Updated by Criss Sims RN on 03/02/2017 12:40:51 PM Criss Sims RN electronically signed on 03/02/2017 12:41:15 PM with status of Final
[2017-03-02] MEDS ORDERED: Heparin 25,000 UNIT/500 ML D5W 25,000 UNIT/500 ML MLS IVC SCH (15:04)
[2017-03-02] MEDS: Heparin 25,000 UNIT/500 ML D5W 25,000 UNIT/500 ML MLS IVC SCH (19:36)
[2017-03-03 03:58] LABS: INR 1.1; Prothrombin Time 12.4 Seconds (9.4-12.1)
[2017-03-03 04:00] LABS: Activated Partial Thrombo Time 80.1 Seconds (26.0-36.0)
[2017-03-03 04:11] LABS: BUN/Creatinine Ratio 19 (6-26); Blood Urea Nitrogen 18 mg/dL (8-26); Calcium 9.7 mg/dL (8.6-10.8); Carbon Dioxide 21 mEq/L (19-29); Chloride 109 mEq/L (98-109); Glucose 99 mg/dL (70-99); Osmolality,Calculated 294 (280-300); Sodium 141 mEq/L (136-145); eGFR For African Americans > 60 (> 60); eGFR For Non-African Americans > 60 (> 60)
[2017-03-03] MEDS: Metoprolol XL (24 HR) Succ 25 MG TAB.ER.24H PO SCH (08:40)
[2017-03-03] MEDS: Aspirin 81 MG TAB.CHEW PO SCH (08:41)
--- NOTE | 2017-03-03 10:27 | Cardiothoracic Consult Note ---
Date of Encounter: 03/03/17 Time of Encounter: 10:24 Assessment and Plan (1) NSTEMI (non-ST elevated myocardial infarction) Current Visit: Yes Status: Acute The patient is an 86-year-old man with hypercholesterolemia who presented to [facility] with left subscapular pain which migrated to his left precordial region on Thursday, on March 01, 201717. The patient was evaluated and found to have elevated troponin I levels consistent with an acute NSTEMI. Cardiac workup including a transthoracic echocardiogram revealed an LVEF 45-50% . 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 The patient has been recommended for CABG; however, unfortunately the patient received a loading dose of Plavix yesterday and the CABG will be postponed for 5-7 days to allow the antiplatelet effect to diminish. The STS risk calculator revealed an operative mortality 2.8%, deep sternal wound infection 0.6%, and a reoperation rate 6%. The patient understands the procedure, benefits, alternatives, and benefits of the CABG procedure, and gives his informed consent. Tentatively, the CABG is planned for Thursday, March 09, 2017. The patient The assessment and plan as outlined above was discussed with the patient and/or family members who expressed understanding and agreement. All questions were answered. - History of Present Illness Consult date: 03/02/17 Requesting physician: Torin Roman Consult reason: CABG evaluation. Chief complaint: Left precordial chest pain. History of present illness: Mr. Garcia is a 86 year old man with hypercholesterolemia who experienced left subscapular 'tingling' upon awakening on Wednesday, March 01, 2017. During the day the pain migrated from his subscapular region around his chest to the left precordial area. He had recently been evaluated by cardiology and diagnosed with stable angina. He had been aspirin prescribed by his primary care physician and nitroglycerin prescribed by the forestry biology specialist. He took for aspirin and 3 nitroglycerin spaced 5 minutes apart. When the pain did not resolve, he was evaluated [facility] emergency department and was found to have elevated troponin I levels consistent with an acute NSTEMI. He received Plavix and was admitted for further cardiac workup. The patient underwent a transthoracic echocardiogram which revealed an LVEF 45- 50% with mild mitral regurgitation and mild tricuspid regurgitation. Subsequent cardiac catheterization performed yesterday revealed severe 3 vessel CAD and an LVEF 30%. In particular the patient has completely occluded proximal LAD which fills distally the right to left collaterals, a 95% proximal LCx lesion, an 80% mid LCx lesion, a 95% proximal OM1 lesion, a 50% mid RCA lesion, and an 80% distal RCA lesion. The patient has been recommended for CABG. Past Med Surg Social Fam HX - Past Medical History Medical history: arthritis, cancer (Non-Hodgkin's lymphoma (in remission 9 years)), coronary artery disease, hyperlipidemia, other (gastritis) Psychiatric history: no psych history - Past Surgical History Surgical History: cancer surgery (Small bowel resection secondary to lymphoma, right cervical lymph node biopsy) - Social History Smoking Status: Former smoker Smokeless Tobacco Status: No Alcohol use: none Drug use: none Occupational status: retired Current living situation: Home - Independent Activity Level: Independent ambulation Recent Out of Country Travel Within the Last 8 Weeks: No Exposure or Possible Exposure to Illness During Travel: No - Family History Mother History Unknown: Yes Name: Perry Gomez Age at : 82 Medications and Allergies Calcium Carbonate/Vitamin D3 [Calcium 600 + Vit D Softgel] 1 tab PO DAILY [History] Glucosamn/Condroitn/C/Mn/[place] [Cvs Glucosamine Chondroitin Tb] 1 tab PO DAILY 04/18/16 [History] Multivitamin [Multi-Day Vitamins] 1 tab PO DAILY 04/18/16 [History] Aspirin 81 mg PO DAILY 03/02/17 [History] L. Acidophilus/Pectin, [place] [Acidophilus Probiotic Capsule] 1 cap PO DAILY [History] Nitroglycerin [Nitrostat] 0.4 mg SL AD PRN 03/02/17 [History] Allergies codeine Adverse Reaction (Unknown, Verified 04/18/16 10:30) other feels like he is floating All Systems Review: A 10-system review of systems was performed and is negative for pertinent findings except as documented above in the HPI. Physical Examination Vital Signs, Last 4 Hours Temp Pulse Resp BP Pulse Ox 03/03/17 07:23 97.4 F L 66 16 133/94 97 General: Conversant, No Apparent Distress HEENT: Atraumatic, Normocephaly, Trachea midline Neck: No JVD, Normal carotid pulses Cardiac: Reg Rate and Rhythm, Normal S1 and S2, No Murmur Lungs: Normal Breath Sounds, No Wheeze, Rales, Rhonchi Neuro: Alert and responsive, No focal deficits noted, Motor nerves intact, Sensory nerves intact Vascular: Normal capillary refill Abdomen: Soft, Non-tender Skin: No rashes noted on visualized skin Musculoskeletal: No Chest Wall Tenderness Extremities: No Clubbing, No Cyanosis, No Edema, Normal Pulses Results 03/02/17 01:54 03/03/17 03:40 Lab Results, Last 24 hours 03/02/17 03/02/17 03/03/17 14:52 20:51 03:40 INR 1.1 APTT 46.9 H 67.2 H 80.1 H Sodium Potassium Chloride Carbon Dioxide BUN Creatinine Glucose Calcium 03/03/17 03:40 INR APTT Sodium 141 Potassium 4.0 Chloride 109 Carbon Dioxide 21 BUN 18 Creatinine 0.94 Glucose 99 Calcium 9.7 - Imaging Chest Xray: image reviewed (Normal cardiac size. No active pulmonary disease.) Consult Discharge Plan - Plan Referrals: Partha Walker Jr, MD [Primary Care Provider] -
--- NOTE | 2017-03-03 13:17 | Cardiology Progress Note ---
Date of Encounter: 03/03/17 Time of Encounter: 13:14 Assessment and Plan (1) NSTEMI (non-ST elevated myocardial infarction) Current Visit: Yes Status: Acute Troponin 0.18, 0.16. Non-specific ST/T wave changes. LHC revealed severe 3 vessel CAD and an LVEF 30%. There was a 100% stenosis in the LAD which fills distally the right to left collaterals, a 95% stenosis proximal LCx , an 80% stenosis mid LCx , a 95% stenosis proximal OM1, a 50% stenosis mid RCA , and 80% stenosis distal RCA. TTE revealed an LVEF 45-50% with mild mitral regurgitation and mild tricuspid regurgitation. He was evaluated by CT surgery and planning for CABG on ThursdayMarch 09 to allow for plavix wash-out. He is chest pain free. Kidney function remains normal. There is no problem noted with right radial access site. Continue asa, statin, and bb. Continue heparin gtt. NTG PRN chest pain. (2) CAD (coronary artery disease) Current Visit: Yes Status: Acute Awaiting CABG. Plan above. Qualifiers: Coronary Disease-Associated Artery/Lesion type: [place] artery [place] vs. transplanted heart: [place] heart Associated angina: with unstable angina Qualified Code(s): I25.110 - Atherosclerotic heart disease of [place] coronary artery with unstable angina pectoris Discussion w patient/family: The assessment and plan as outlined above was discussed with the patient and/or family members who expressed understanding and agreement. All questions were answered. Thank you for involving us in the care of your patient. Please call with any questions. Subjective Principal diagnosis: NSTEMI Interval history: Patient resting comfortably. Planning for CABG on Thursday. Denies questions. Objective Vital Signs, Last 4 Hours Temp Pulse Resp BP Pulse Ox 03/03/17 11:58 97.9 F 64 16 116/70 94 General: Conversant, No Apparent Distress HEENT: Atraumatic, Normocephaly, Mucus Membranes Moist Neck: No JVD, Normal carotid pulses Cardiac: Reg Rate and Rhythm, Normal S1 and S2, No Murmur Lungs: Normal Breath Sounds, No Wheeze, Rales, Rhonchi Neuro: Alert and responsive, No focal deficits noted Abdomen: Soft, Non-Tender Skin: No rashes noted on visualized skin Musculoskeletal: No Chest Wall Tenderness Extremities: No Clubbing, No Cyanosis, No Edema, Normal Pulses, Other (Right radial access site without hematoma. No redness or drainage. ) Results 03/02/17 01:54 03/03/17 03:40 Lab Results 03/02/17 03/02/17 03/03/17 14:52 20:51 03:40 INR 1.1 APTT 46.9 H 67.2 H 80.1 H Sodium Potassium Chloride Carbon Dioxide BUN Creatinine Glucose Calcium 03/03/17 03:40 INR APTT Sodium 141 Potassium 4.0 Chloride 109 Carbon Dioxide 21 BUN 18 Creatinine 0.94 Glucose 99 Calcium 9.7 - Imaging and Cardiology Echo: report reviewed Cardiac cath: report reviewed Consult Discharge Plan - Plan Referrals: Partha Walker Jr, MD [Primary Care Provider] -
--- NOTE | 2017-03-03 13:42 | Internal Med Progress Note ---
<Albert Farrar - Last Filed: 03/03/17 15:51> Date of Encounter: 03/03/17 Time of Encounter: 10:20 - Assessment and plan (1) NSTEMI (non-ST elevated myocardial infarction) Current Visit: Yes Status: Acute Assessment and plan: Troponin 0.18, 0.16. With non-specific ST/T wave changes on EKG. Pain started after waking up, worse with exertion, pain located between shoulders. Pain since resolved. Seen and followed by Cardiology. Echocardiogram showed LVEF 45-50%. Continue BB, asa, and statin. Update: Patient underwent LHC, found to have triple vessel disease, plan for CABG on Thursday as patient received loading dose of Plavix yesterday. (2) Lymphoma Current Visit: Yes Status: Acute Assessment and plan: Stable, noted to be in remission for 9 years. Qualifiers: Lymphoma type: unspecified type Lymphoma site: unspecified region Qualified Code(s): C85.90 - Non-Hodgkin lymphoma, unspecified, unspecified site (3) HLD (hyperlipidemia) Current Visit: Yes Status: Chronic Assessment and plan: Risk factor modification. Continue statin. Qualifiers: Hyperlipidemia type: mixed hyperlipidemia Qualified Code(s): E78.2 - Mixed hyperlipidemia (4) DVT prophylaxis Current Visit: Yes Status: Acute Assessment and plan: Patient on heparin drip. - Time Spent With Patient 25 - 35 minutes - Subjective Interval history: Patient seen and examined, denies any acute distress, denies chest pain or shortness of breath, denies nausea or vomiting. Agreeable to CABG on Thursday. - Constitutional Vitals: Temp Pulse Resp BP Pulse Ox 97.9 F 64 16 116/70 94 03/03/17 11:58 03/03/17 11:58 03/03/17 11:58 03/03/17 11:58 03/03/17 11:58 General appearance: Present: cooperative, A&O X 3, pleasant, no acute distress, answers questions appropriately - Head Head exam: Present: atraumatic, normocephalic - Eye Eye exam: Present: EOMI, conjuntiva pink - ENT ENT exam: Present: mucous membranes moist - Neck Neck exam general surgery: Present: full ROM - Respiratory Respiratory exam: Present: CTAB. Absent: rhonchi, wheezes - Cardiovascular Cardiovascular exam: Present: RRR. Absent: tachycardia - GI/Abdominal GI/Abdominal exam: Present: soft. Absent: distended, firm, guarding, tenderness - Extremities Exam Extremities exam: Absent: cyanotic, pedal edema, tenderness - Neurological Exam Neurological exam: Present: alert, oriented X3, no focal deficits - Psychiatric Psychiatric exam: Present: normal affect, normal mood - Skin Skin exam: Present: dry, normal color, warm. Absent: cyanosis, rash Internal Medicine: Result - Labs CBC & Chem 7: 03/02/17 01:54 03/03/17 03:40 Labs: BMP 03/03/17 03:40 Sodium 141 Potassium 4.0 Chloride 109 Carbon Dioxide 21 BUN 18 Creatinine 0.94 Glucose 99 Calcium 9.7 - ABG Interpretation ABG results: PT/INR, D-dimer PT 12.4 Seconds (9.4-12.1) H 03/03/17 03:40 Consult Discharge Plan - Plan Referrals: Partha Walker Jr, MD [Primary Care Provider] - <Priyank Samayoa P - Last Filed: 03/03/17 17:27> Date of Encounter: 03/03/17 - Constitutional Vitals: Temp Pulse Resp BP Pulse Ox 97.4 F L 65 16 124/78 93 03/03/17 15:34 03/03/17 15:34 03/03/17 15:34 03/03/17 15:34 03/03/17 15:34 Internal Medicine: Result - Labs CBC & Chem 7: 03/02/17 01:54 03/03/17 03:40 Labs: BMP 03/03/17 03:40 Sodium 141 Potassium 4.0 Chloride 109 Carbon Dioxide 21 BUN 18 Creatinine 0.94 Glucose 99 Calcium 9.7 - ABG Interpretation ABG results: PT/INR, D-dimer PT 12.4 Seconds (9.4-12.1) H 03/03/17 03:40 - Attending Attestation I examined this patient and my medical decision-making was reviewed with the YARN COMBER/PA/Advanced Practice Nurse/Resident Physician. I agree with the documented findings, disposition and treatment plan as described except to the extent set forth below. Cardiothoracic surgery input appreciated. Scheduled for coronary artery bypass graft on Thursday.
[2017-03-03] MEDS: Heparin 25,000 UNIT/500 ML D5W 25,000 UNIT/500 ML MLS IVC SCH (15:55)
[2017-03-04] MEDS: Aspirin 81 MG TAB.CHEW PO SCH (08:01)
[2017-03-04] MEDS: Metoprolol XL (24 HR) Succ 25 MG TAB.ER.24H PO SCH (08:01)
--- NOTE | 2017-03-04 09:58 | Invasive Diagnostic Lab ---
Name: Matthew Garcia Date of Study: 03/02/2017 Date: 1930 Ht: 170.0 cm /66.9 in Medical Record#: [id number] Age: 86 Wt: 84. kg / 185.19 lb Account/Order#: [id number] Gender: Male BSA: 1.96 Order #: [id number] Fluoro Dose: 160 mGy BMI: 29.07 Procedure Physician: Torin Roman MD, FACC Referring MD: Referring MD: Procedures Performed: LEFT HEART CATH Indications: Non-Stemi Impressions: There is severe three vessel coronary artery disease. The left ventricle EF 30% Recommendations: Optimal medical therapy of patient's disease. Aggressive risk factor modification. Suggest patient have Elective coronary artery bypass surgery. History/Risk Factors: Arthritis cancer Hypertension Dyslipidemia Family History of CAD Procedure Access obtained in the right Radial artery by percutaneous puncture Complications: None Contrast: Isovue 54ml Hemodynamics: Pressures Site Systolic/ A Wave Diastolic/ V Wave End Diastolic/ Mean HR AO 77 57 67 67 AO 89 64 77 65 LV 106 4 12 75 LV 99 6 12 63 AO 92 50 66 63 LV Ventriculography Ejection Method: LV Gram Ejection Fraction: 30% Wall Motion: MCGOVERN Anterobasal Moderate Hypokinesis Anterolateral Moderate Hypokinesis Apical: Moderate Hypokinesis Inferoapical Moderate Hypokinesis Inferobasal Moderate Hypokinesis Coronary Dominance: right Lesion Findings/Interventions * Left Main Coronary Artery The LMCA is angiographically free of disease. * Left Anterior Descending There is a 100% stenosis in the ostial-Proximal LAD. The lesion has a CARLITOS flow of 0 and has collaterals which feed from right to left. * Circumflex There is a 95% stenosis in the Proximal Circumflex. The lesion has a CARLITOS flow of 2. There is a 70% stenosis in the Mid Circumflex. The lesion has a CARLITOS flow of 2. There is a 95% stenosis in the 1st Marginal. The lesion has a CARLITOS flow of 2. * Right Coronary Artery There is a 50% stenosis in the Mid RCA. The lesion has a CARLITOS flow of 3. There is a 80% stenosis in the Distal RCA. The lesion has a CARLITOS flow of 3. Updated by Criss Sims RN on 03/02/2017 12:38:59 PM Torin Roman MD, FACC electronically signed on 03/04/2017 9:53:54 AM with status of Final
--- NOTE | 2017-03-04 10:08 | Cardiology Progress Note ---
Date of Encounter: 03/04/17 Time of Encounter: 10:07 Assessment and Plan (1) NSTEMI (non-ST elevated myocardial infarction) Current Visit: Yes Status: Acute Troponin 0.18, 0.16. Non-specific ST/T wave changes. LHC revealed severe 3 vessel CAD and an LVEF 30%. There was a 100% stenosis in the LAD which fills distally the right to left collaterals, a 95% stenosis proximal LCx , an 80% stenosis mid LCx , a 95% stenosis proximal OM1, a 50% stenosis mid RCA , and 80% stenosis distal RCA. TTE revealed an LVEF 45-50% with mild mitral regurgitation and mild tricuspid regurgitation. He was evaluated by CT surgery and planning for CABG on ThursdayMarch 09 to allow for plavix wash-out. He is chest pain free. Kidney function remains normal. There is no problem noted with right radial access site. Continue asa, statin, and bb. Continue heparin gtt. NTG PRN chest pain. Consider starting marjorie-inhibitor after surgery for mild cardiomyoapthy. He is currently euvolemic. Cardiology will sign off. Please call with questions. F/u in 2-4 weeks will be made. (2) CAD (coronary artery disease) Current Visit: Yes Status: Acute Awaiting CABG. Plan above. Qualifiers: Coronary Disease-Associated Artery/Lesion type: [place] artery [place] vs. transplanted heart: [place] heart Associated angina: with unstable angina Qualified Code(s): I25.110 - Atherosclerotic heart disease of [place] coronary artery with unstable angina pectoris Discussion w patient/family: The assessment and plan as outlined above was discussed with the patient and/or family members who expressed understanding and agreement. All questions were answered. Thank you for involving us in the care of your patient. Please call with any questions. Subjective Principal diagnosis: NSTEMI Interval history: Patient resting comfortably. Planning for CABG on Thursday. Denies questions. No new events overnight. Objective Vital Signs, Last 4 Hours Temp Pulse Resp BP Pulse Ox 03/04/17 07:13 97.6 F 60 18 133/83 95 General: Conversant, No Apparent Distress HEENT: Atraumatic, Normocephaly, Mucus Membranes Moist Neck: No JVD, Normal carotid pulses Cardiac: Reg Rate and Rhythm, Normal S1 and S2, No Murmur Lungs: Normal Breath Sounds, No Wheeze, Rales, Rhonchi Neuro: Alert and responsive, No focal deficits noted Abdomen: Soft, Non-Tender Skin: No rashes noted on visualized skin Musculoskeletal: No Chest Wall Tenderness Extremities: No Clubbing, No Cyanosis, No Edema, Normal Pulses Results 03/02/17 01:54 03/03/17 03:40 Lab Results 03/04/17 03:33 APTT 81.7 H Consult Discharge Plan - Plan Referrals: Partha Walker Jr, MD [Primary Care Provider] -
--- NOTE | 2017-03-04 10:09 | Cardiothoracic Progress Note ---
Date of Encounter: 03/04/17 Time of Encounter: 10:08 - Assessment and plan (1) NSTEMI (non-ST elevated myocardial infarction) Current Visit: Yes Status: Acute The patient is an 86-year-old man with hypercholesterolemia who presented to [facility] with left subscapular pain which migrated to his left precordial region on Thursday, on March 01, 201717. The patient was evaluated and found to have elevated troponin I levels consistent with an acute NSTEMI. Cardiac workup including a transthoracic echocardiogram revealed an LVEF 45-50% . 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 The patient has been recommended for CABG; however, unfortunately the patient received a loading dose of Plavix yesterday and the CABG will be postponed for 5-7 days to allow the antiplatelet effect to diminish. The STS risk calculator revealed an operative mortality 2.8%, deep sternal wound infection 0.6%, and a reoperation rate 6%. The patient understands the procedure, benefits, alternatives, and benefits of the CABG procedure, and gives his informed consent. Tentatively, the CABG is planned for Thursday, March 09, 2017. The patient The assessment and plan as outlined above was discussed with the patient and/or family members who expressed understanding and agreement. All questions were answered. - Subjective Interval history: The patient is resting comfortably in his hospital bed. He has no complaints of substernal chest pain or shortness of breath. Vital Signs, Last 4 Hours Temp Pulse Resp BP Pulse Ox 03/04/17 07:13 97.6 F 60 18 133/83 95 Oxgyen Flow Rate Oxygen Flow Rate (LPM) 2.5 Clinical Data, last 8 Hours Output, Urine Amount 0 Weight 03/02/17 03/03/17 03/04/17 23:59 23:59 23:59 Weight 84 kg 81.4 kg - Physical Examination General: Conversant, No Apparent Distress Neck: No JVD, Normal carotid pulses Cardiac: Reg Rate and Rhythm, Normal S1 and S2 Lungs: Normal Breath Sounds, No Wheeze, Rales, Rhonchi Neuro: Alert and responsive, No focal deficits noted Vascular: Normal capillary refill Musculoskeletal: No Chest Wall Tenderness Extremities: No Clubbing, No Cyanosis, No Edema, Normal Pulses - Labs 03/02/17 01:54 03/03/17 03:40 Lab Results, Last 24 hours 03/04/17 03:33 APTT 81.7 H Consult Discharge Plan - Plan Referrals: Partha Walker Jr, MD [Primary Care Provider] -
--- NOTE | 2017-03-04 10:14 | Internal Med Progress Note ---
<Priyank Samayoa P - Last Filed: 03/04/17 14:34> Date of Encounter: 03/04/17 - Constitutional Vitals: Temp Pulse Resp BP Pulse Ox 97.6 F 60 18 133/83 95 03/04/17 07:13 03/04/17 07:13 03/04/17 07:13 03/04/17 07:13 03/04/17 07:13 Internal Medicine: Result - Labs CBC & Chem 7: 03/02/17 01:54 03/03/17 03:40 - ABG Interpretation ABG results: PT/INR, D-dimer PT 12.4 Seconds (9.4-12.1) H 03/03/17 03:40 Consult Discharge Plan - Plan Referrals: Partha Walker Jr, MD [Primary Care Provider] - - Attending Attestation I examined this patient and my medical decision-making was reviewed with the IMPROVEMENT NURSE/PA/Advanced Practice Nurse/Resident Physician. I agree with the documented findings, disposition and treatment plan as described except to the extent set forth below. triple vessel disease S/P cath CABG on Thursday CTS is following <LeniAlbertadonis Marese - Last Filed: 03/04/17 19:48> Date of Encounter: 03/04/17 Time of Encounter: 09:20 - Assessment and plan (1) NSTEMI (non-ST elevated myocardial infarction) Current Visit: Yes Status: Acute Assessment and plan: Troponin 0.18, 0.16. With non-specific ST/T wave changes on EKG. Pain started after waking up, worse with exertion, pain located between shoulders. Pain since resolved. Seen and followed by Cardiology. Echocardiogram showed LVEF 45-50%. Continue BB, asa, and statin. Patient underwent LHC, found to have triple vessel disease, plan for CABG on Thursday02/06/17 as patient received loading dose of Plavix yesterday. (2) Lymphoma Current Visit: Yes Status: Acute Assessment and plan: Stable, noted to be in remission for 9 years. Qualifiers: Lymphoma type: unspecified type Lymphoma site: unspecified region Qualified Code(s): C85.90 - Non-Hodgkin lymphoma, unspecified, unspecified site (3) HLD (hyperlipidemia) Current Visit: Yes Status: Chronic Assessment and plan: Risk factor modification. Continue statin. Qualifiers: Hyperlipidemia type: mixed hyperlipidemia Qualified Code(s): E78.2 - Mixed hyperlipidemia (4) DVT prophylaxis Current Visit: Yes Status: Acute Assessment and plan: Patient on heparin drip. - Time Spent With Patient less than 15 minutes - Subjective Interval history: Patient seen and examined, denies any acute distress, denies chest pain or shortness of breath, denies nausea or vomiting. Planning for CABG on Thursday. - Constitutional Vitals: Temp Pulse Resp BP Pulse Ox 97.6 F 60 18 133/83 95 03/04/17 07:13 03/04/17 07:13 03/04/17 07:13 03/04/17 07:13 03/04/17 07:13 General appearance: Present: cooperative, A&O X 3, pleasant, no acute distress, answers questions appropriately - Head Head exam: Present: atraumatic, normocephalic - Eye Eye exam: Present: EOMI, conjuntiva pink - ENT ENT exam: Present: mucous membranes moist - Neck Neck exam general surgery: Present: full ROM, supple - Respiratory Respiratory exam: Present: CTAB. Absent: rhonchi, wheezes - Extremities Exam Extremities exam: Absent: pedal edema, tenderness - Neurological Exam Neurological exam: Present: alert, oriented X3, no focal deficits. Absent: speech deficit - Psychiatric Psychiatric exam: Present: normal affect, normal mood - Skin Skin exam: Present: dry, normal color, warm. Absent: cyanosis, rash Internal Medicine: Result - Labs CBC & Chem 7: 03/02/17 01:54 03/03/17 03:40 - ABG Interpretation ABG results: PT/INR, D-dimer PT 12.4 Seconds (9.4-12.1) H 03/03/17 03:40
[2017-03-05] MEDS: Naphazoline/Pheniramine Opth 15 ML BOTTLE BOTH EYES PRN ×2 (02:09→20:56)
[2017-03-05 04:27] LABS: Basophils # 0.1 K/mcL (0.0-0.2); Basophils % 0.7 %; Eosinophils # 0.3 K/mcL (0.0-0.6); Eosinophils % 3.9 %; Hematocrit 45.1 % (37.5-50.1); Hemoglobin 15.1 g/dL (12.9-16.9); Immature Granulocytes % 0.4 % (0-4); Lymphocytes # 2.3 K/mcL (0.6-4.6); Lymphocytes % 29.5 %; Mean Corpuscular HGB Conc 33.5 g/dL (31.6-35.5); Mean Corpuscular Hemoglobin 30.5 pg (28.0-33.3); Mean Corpuscular Volume 91.1 fL (83.0-100.0); Mean Platelet Volume 9.2 fL (9.4-12.4); Monocytes # 0.7 K/mcL (0.0-1.3); Monocytes % 8.8 %; Neutrophils # 4.3 K/mcL (1.6-8.9); Platelet Count 172 K/mcL (140-400); Red Blood Count 4.95 M/mcL (4.19-5.50); Red Cell Distribution Width 13.2 % (11.5-14.5); Segmented Neutrophils % 56.7 %
[2017-03-05 04:38] LABS: BUN/Creatinine Ratio 22 (6-26); Blood Urea Nitrogen 21 mg/dL (8-26); Carbon Dioxide 21 mEq/L (19-29); Chloride 109 mEq/L (98-109); Glucose 104 mg/dL (70-99); Osmolality,Calculated 289 (280-300); Potassium 3.9 mEq/L (3.5-4.5); Sodium 138 mEq/L (136-145); eGFR For African Americans > 60 (> 60); eGFR For Non-African Americans > 60 (> 60)
--- NOTE | 2017-03-05 08:56 | Internal Med Progress Note ---
<Albert Farrar - Last Filed: 03/05/17 13:52> Date of Encounter: 03/05/17 Time of Encounter: 10:45 - Assessment and plan (1) NSTEMI (non-ST elevated myocardial infarction) Current Visit: Yes Status: Acute Assessment and plan: Troponin 0.18, 0.16. With non-specific ST/T wave changes on EKG. Pain started after waking up, worse with exertion, pain located between shoulders. Pain since resolved. Seen and followed by Cardiology. Echocardiogram showed LVEF 45-50%. Continue BB, asa, and statin. Patient underwent LHC, found to have triple vessel disease, plan for CABG on Thursday02/06/17 as patient received loading dose of Plavix yesterday. (2) Lymphoma Current Visit: Yes Status: Acute Assessment and plan: Stable, noted to be in remission for 9 years. Qualifiers: Lymphoma type: unspecified type Lymphoma site: unspecified region Qualified Code(s): C85.90 - Non-Hodgkin lymphoma, unspecified, unspecified site (3) HLD (hyperlipidemia) Current Visit: Yes Status: Chronic Assessment and plan: Risk factor modification. Continue statin. Qualifiers: Hyperlipidemia type: mixed hyperlipidemia Qualified Code(s): E78.2 - Mixed hyperlipidemia (4) DVT prophylaxis Current Visit: Yes Status: Acute Assessment and plan: Patient on heparin drip. - Subjective Interval history: Patient seen and examined, denies any acute distress, denies chest pain or shortness of breath, denies nausea or vomiting. Planning for CABG on Thursday. - Constitutional Vitals: Temp Pulse Resp BP Pulse Ox 97.5 F L 62 16 115/66 95 03/05/17 06:47 03/05/17 06:47 03/05/17 06:47 03/05/17 06:47 03/05/17 06:47 General appearance: Present: cooperative, A&O X 3, pleasant, no acute distress, answers questions appropriately - Head Head exam: Present: atraumatic, normocephalic - Eye Eye exam: Present: EOMI, conjuntiva pink - ENT ENT exam: Present: mucous membranes moist - Neck Neck exam general surgery: Present: full ROM - Respiratory Respiratory exam: Present: CTAB. Absent: rhonchi, wheezes - Cardiovascular Cardiovascular exam: Present: RRR. Absent: tachycardia - Neurological Exam Neurological exam: Present: alert, oriented X3, no focal deficits. Absent: speech deficit - Psychiatric Psychiatric exam: Present: normal affect, normal mood - Skin Skin exam: Present: dry, intact, normal color, warm Internal Medicine: Result - Labs CBC & Chem 7: 03/05/17 04:14 03/05/17 04:14 Labs: Short CBC 03/05/17 Range/Units 04:14 WBC 7.6 (4.3-11.1) K/mcL Hgb 15.1 (12.9-16.9) g/dL Hct 45.1 (37.5-50.1) % Plt Count 172 (140-400) K/mcL Neutrophils # 4.3 (1.6-8.9) K/mcL [facility] 03/05/17 04:14 Sodium 138 Potassium 3.9 Chloride 109 Carbon Dioxide 21 BUN 21 Creatinine 0.96 Glucose 104 H Calcium 10.0 - ABG Interpretation ABG results: PT/INR, D-dimer PT 12.4 Seconds (9.4-12.1) H 03/03/17 03:40 Consult Discharge Plan - Plan Referrals: Partha Walker Jr, MD [Primary Care Provider] - <Priyank Samayoa P - Last Filed: 03/05/17 14:17> Date of Encounter: 03/05/17 - Constitutional Vitals: Temp Pulse Resp BP Pulse Ox 98.1 F 72 16 138/72 91 03/05/17 11:12 03/05/17 11:12 03/05/17 11:12 03/05/17 11:12 03/05/17 11:12 Internal Medicine: Result - Labs CBC & Chem 7: 03/05/17 04:14 03/05/17 04:14 Labs: Short CBC 03/05/17 Range/Units 04:14 WBC 7.6 (4.3-11.1) K/mcL Hgb 15.1 (12.9-16.9) g/dL Hct 45.1 (37.5-50.1) % Plt Count 172 (140-400) K/mcL Neutrophils # 4.3 (1.6-8.9) K/mcL [facility] 03/05/17 04:14 Sodium 138 Potassium 3.9 Chloride 109 Carbon Dioxide 21 BUN 21 Creatinine 0.96 Glucose 104 H Calcium 10.0 - ABG Interpretation ABG results: PT/INR, D-dimer PT 12.4 Seconds (9.4-12.1) H 03/03/17 03:40 - Attending Attestation I examined this patient and my medical decision-making was reviewed with the SENIOR VISUAL DESIGNER/PA/Advanced Practice Nurse/Resident Physician. I agree with the documented findings, disposition and treatment plan as described except to the extent set forth below.
[2017-03-05] MEDS: Aspirin 81 MG TAB.CHEW PO SCH (10:46)
[2017-03-05] MEDS: Metoprolol XL (24 HR) Succ 25 MG TAB.ER.24H PO SCH (10:46)
[2017-03-05] MEDS: Heparin 25,000 UNIT/500 ML D5W 25,000 UNIT/500 ML MLS IVC SCH (20:54)
--- NOTE | 2017-03-06 06:58 | Cardiothoracic Progress Note ---
Date of Encounter: 03/05/17 Time of Encounter: 06:56 - Assessment and plan (1) NSTEMI (non-ST elevated myocardial infarction) Current Visit: Yes Status: Acute The patient is an 86-year-old man with hypercholesterolemia who presented to [facility] with left subscapular pain which migrated to his left precordial region on Thursday, on March 01, 201717. The patient was evaluated and found to have elevated troponin I levels consistent with an acute NSTEMI. Cardiac workup including a transthoracic echocardiogram revealed an LVEF 45-50% . 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 The patient has been recommended for CABG; however, unfortunately the patient received a loading dose of Plavix yesterday and the CABG will be postponed for 5-7 days to allow the antiplatelet effect to diminish. The STS risk calculator revealed an operative mortality 2.8%, deep sternal wound infection 0.6%, and a reoperation rate 6%. The patient understands the procedure, benefits, alternatives, and benefits of the CABG procedure, and gives his informed consent. Tentatively, the CABG is planned for Thursday, March 09, 2017. The patient The assessment and plan as outlined above was discussed with the patient and/or family members who expressed understanding and agreement. All questions were answered. This is a late entry. The patient was seen on 03/05/2017; however, the note was not completed until 03/06/2017. - Subjective Interval history: The patient is resting comfortably in his hospital bed. He has no complaints of substernal chest pain or shortness of breath. Vital Signs, Last 4 Hours Temp Pulse Resp BP Pulse Ox 03/06/17 06:38 97.9 F 64 17 126/69 92 03/06/17 04:35 98.7 F 67 14 118/66 96 Oxgyen Flow Rate Oxygen Flow Rate (LPM) 2 Weight 03/04/17 03/05/17 03/06/17 23:59 23:59 23:59 Weight 81.4 kg 82.4 kg 85.2 kg - Physical Examination General: Conversant, No Apparent Distress Neck: No JVD, Normal carotid pulses Cardiac: Reg Rate and Rhythm, Normal S1 and S2, No Murmur Lungs: Normal Breath Sounds, No Wheeze, Rales, Rhonchi Neuro: Alert and responsive, No focal deficits noted Vascular: Normal capillary refill Musculoskeletal: No Chest Wall Tenderness Extremities: No Clubbing, No Cyanosis, No Edema - Labs 03/05/17 04:14 03/05/17 04:14 Lab Results, Last 24 hours 03/06/17 04:10 APTT 75.0 H Consult Discharge Plan - Plan Referrals: Partha Walker Jr, MD [Primary Care Provider] -
--- NOTE | 2017-03-06 07:32 | Cardiothoracic Progress Note ---
Date of Encounter: 03/06/17 Time of Encounter: 07:31 - Assessment and plan (1) NSTEMI (non-ST elevated myocardial infarction) Current Visit: Yes Status: Acute The patient is an 86-year-old man with hypercholesterolemia who presented to [facility] with left subscapular pain which migrated to his left precordial region on Thursday, on March 01, 201717. The patient was evaluated and found to have elevated troponin I levels consistent with an acute NSTEMI. Cardiac workup including a transthoracic echocardiogram revealed an LVEF 45-50% . 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 The patient has been recommended for CABG; however, unfortunately the patient received a loading dose of Plavix yesterday and the CABG will be postponed for 5-7 days to allow the antiplatelet effect to diminish. The STS risk calculator revealed an operative mortality 2.8%, deep sternal wound infection 0.6%, and a reoperation rate 6%. The patient understands the procedure, benefits, alternatives, and benefits of the CABG procedure, and gives his informed consent. Tentatively, the CABG is planned for Thursday, March 09, 2017. The patient The assessment and plan as outlined above was discussed with the patient and/or family members who expressed understanding and agreement. All questions were answered. - Subjective Interval history: The patient is resting comfortably in his hospital bed. He has no complaints of substernal chest pain or shortness of breath. Vital Signs, Last 4 Hours Temp Pulse Resp BP Pulse Ox 03/06/17 06:38 97.9 F 64 17 126/69 92 03/06/17 04:35 98.7 F 67 14 118/66 96 Oxgyen Flow Rate Oxygen Flow Rate (LPM) 2 Weight 03/04/17 03/05/17 03/06/17 23:59 23:59 23:59 Weight 81.4 kg 82.4 kg 85.2 kg - Physical Examination General: Conversant, No Apparent Distress Neck: No JVD, Normal carotid pulses Cardiac: Reg Rate and Rhythm, Normal S1 and S2, No Murmur Lungs: Normal Breath Sounds, No Wheeze, Rales, Rhonchi Neuro: Alert and responsive, No focal deficits noted Vascular: Normal capillary refill Musculoskeletal: No Chest Wall Tenderness Extremities: No Clubbing, No Cyanosis, No Edema - Labs 03/05/17 04:14 03/05/17 04:14 Lab Results, Last 24 hours 03/06/17 04:10 APTT 75.0 H Consult Discharge Plan - Plan Referrals: Partha Walker Jr, MD [Primary Care Provider] -
--- NOTE | 2017-03-06 08:49 | Internal Med Progress Note ---
<Albert Farrar - Last Filed: 03/06/17 15:47> Date of Encounter: 03/06/17 Time of Encounter: 09:50 - Assessment and plan (1) NSTEMI (non-ST elevated myocardial infarction) Current Visit: Yes Status: Acute Assessment and plan: Troponin 0.18, 0.16. With non-specific ST/T wave changes on EKG. Pain started after waking up, worse with exertion, pain located between shoulders. Pain since resolved. Seen and followed by Cardiology. Echocardiogram showed LVEF 45-50%. Continue BB, asa, and statin. Patient underwent LHC, found to have triple vessel disease, plan for CABG on Thursday02/06/17 as patient received loading dose of Plavix. (2) Lymphoma Current Visit: Yes Status: Acute Assessment and plan: Stable, noted to be in remission for 9 years. Qualifiers: Lymphoma type: unspecified type Lymphoma site: unspecified region Qualified Code(s): C85.90 - Non-Hodgkin lymphoma, unspecified, unspecified site (3) HLD (hyperlipidemia) Current Visit: Yes Status: Chronic Assessment and plan: Risk factor modification. Continue statin. Qualifiers: Hyperlipidemia type: mixed hyperlipidemia Qualified Code(s): E78.2 - Mixed hyperlipidemia (4) DVT prophylaxis Current Visit: Yes Status: Acute Assessment and plan: Patient on heparin drip. - Time Spent With Patient less than 15 minutes - Subjective Interval history: Patient seen and examined, denies any acute distress, denies chest pain or shortness of breath, denies nausea or vomiting. Planning for CABG on Thursday. - Constitutional Vitals: Temp Pulse Resp BP Pulse Ox 97.9 F 64 17 126/69 92 03/06/17 06:38 03/06/17 06:38 03/06/17 06:38 03/06/17 06:38 03/06/17 06:38 General appearance: Present: cooperative, A&O X 3, pleasant, no acute distress, answers questions appropriately - Head Head exam: Present: atraumatic, normocephalic - Eye Eye exam: Present: EOMI, conjuntiva pink - ENT ENT exam: Present: mucous membranes moist - Neck Neck exam general surgery: Present: full ROM - Respiratory Respiratory exam: Present: decreased breath sounds, CTAB - Cardiovascular Cardiovascular exam: Present: RRR - Extremities Exam Extremities exam: Absent: pedal edema, tenderness - Neurological Exam Neurological exam: Present: alert, oriented X3, no focal deficits. Absent: speech deficit - Psychiatric Psychiatric exam: Present: normal affect, normal mood - Skin Skin exam: Present: dry, intact, normal color. Absent: rash Internal Medicine: Result - Labs CBC & Chem 7: 03/05/17 04:14 03/05/17 04:14 - ABG Interpretation ABG results: PT/INR, D-dimer PT 12.4 Seconds (9.4-12.1) H 03/03/17 03:40 Consult Discharge Plan - Plan Referrals: Partha Walker Jr, MD [Primary Care Provider] - 03/12/17 11:00 am <Priyank Samayoa - Last Filed: 03/06/17 17:42> Date of Encounter: 03/06/17 - Constitutional Vitals: Temp Pulse Resp BP Pulse Ox 98.5 F 66 15 116/68 95 03/06/17 15:00 03/06/17 15:00 03/06/17 15:00 03/06/17 15:00 03/06/17 15:00 Internal Medicine: Result - Labs CBC & Chem 7: 03/05/17 04:14 03/05/17 04:14 - ABG Interpretation ABG results: PT/INR, D-dimer PT 12.4 Seconds (9.4-12.1) H 03/03/17 03:40 - Attending Attestation I examined this patient and my medical decision-making was reviewed with the ELECTROPHYSIOLOGY NURSE PRACTITIONER/PA/Advanced Practice Nurse/Resident Physician. I agree with the documented findings, disposition and treatment plan as described except to the extent set forth below.
[2017-03-06] MEDS: Aspirin 81 MG TAB.CHEW PO SCH (09:38)
[2017-03-06] MEDS: Metoprolol XL (24 HR) Succ 25 MG TAB.ER.24H PO SCH (09:38)
[2017-03-06] MEDS: Naphazoline/Pheniramine Opth 15 ML BOTTLE BOTH EYES PRN (20:58)
[2017-03-07] MEDS: Heparin 25,000 UNIT/500 ML D5W 25,000 UNIT/500 ML MLS IVC SCH (00:14)
--- NOTE | 2017-03-07 06:37 | Cardiothoracic Progress Note ---
Date of Encounter: 03/07/17 Time of Encounter: 06:36 - Assessment and plan (1) NSTEMI (non-ST elevated myocardial infarction) Current Visit: Yes Status: Acute The patient is an 86-year-old man with hypercholesterolemia who presented to [facility] with left subscapular pain which migrated to his left precordial region on Thursday, on March 01, 201717. The patient was evaluated and found to have elevated troponin I levels consistent with an acute NSTEMI. Cardiac workup including a transthoracic echocardiogram revealed an LVEF 45-50% . 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 The patient has been recommended for CABG; however, unfortunately the patient received a loading dose of Plavix yesterday and the CABG will be postponed for 5-7 days to allow the antiplatelet effect to diminish. The STS risk calculator revealed an operative mortality 2.8%, deep sternal wound infection 0.6%, and a reoperation rate 6%. The patient understands the procedure, benefits, alternatives, and benefits of the CABG procedure, and gives his informed consent. Tentatively, the CABG is planned for Thursday, March 09, 2017. The patient The assessment and plan as outlined above was discussed with the patient and/or family members who expressed understanding and agreement. All questions were answered. - Subjective Interval history: The patient is resting comfortably in his hospital bed. He has no complaints of substernal chest pain or shortness of breath. Vital Signs, Last 4 Hours Temp Pulse Resp BP Pulse Ox 03/07/17 04:49 97.6 F 56 14 102/52 90 Oxgyen Flow Rate Oxygen Flow Rate (LPM) 2 Weight 03/05/17 03/06/17 03/07/17 23:59 23:59 23:59 Weight 82.4 kg 85.2 kg 82.5 kg - Physical Examination General: Conversant, No Apparent Distress Neck: No JVD, Normal carotid pulses Cardiac: Reg Rate and Rhythm, Normal S1 and S2, No Murmur Lungs: Normal Breath Sounds, No Wheeze, Rales, Rhonchi Neuro: Alert and responsive, No focal deficits noted Vascular: Normal capillary refill Musculoskeletal: No Chest Wall Tenderness Extremities: No Clubbing, No Cyanosis, No Edema - Labs 03/05/17 04:14 03/05/17 04:14 Lab Results, Last 24 hours 03/07/17 03:49 APTT 71.1 H Consult Discharge Plan - Plan Referrals: Partha Walker Jr, MD [Primary Care Provider] - 03/12/17 11:00 am
[2017-03-07] MEDS: Metoprolol XL (24 HR) Succ 25 MG TAB.ER.24H PO SCH (09:16)
[2017-03-07] MEDS: Aspirin 81 MG TAB.CHEW PO SCH (09:16)
--- NOTE | 2017-03-07 13:32 | Internal Med Progress Note ---
Date of Encounter: 03/07/17 Time of Encounter: 13:30 - Assessment and plan (1) NSTEMI (non-ST elevated myocardial infarction) Current Visit: Yes Status: Acute Assessment and plan: Troponin 0.18, 0.16. With non-specific ST/T wave changes on EKG. Pain started after waking up, worse with exertion, pain located between shoulders. Pain since resolved. Seen and followed by Cardiology. Echocardiogram showed LVEF 45-50%. Continue BB, asa, and statin. Patient underwent LHC, found to have triple vessel disease, plan for CABG on Thursday02/06/17 as patient received loading dose of Plavix. 03/07/2017. No new developments overnight. CABG planned Thursday02/06/17 (2) Lymphoma Current Visit: Yes Status: Acute Assessment and plan: Stable, noted to be in remission for 9 years. Qualifiers: Lymphoma type: unspecified type Lymphoma site: unspecified region Qualified Code(s): C85.90 - Non-Hodgkin lymphoma, unspecified, unspecified site (3) HLD (hyperlipidemia) Current Visit: Yes Status: Chronic Assessment and plan: Risk factor modification. Continue statin. Qualifiers: Hyperlipidemia type: mixed hyperlipidemia Qualified Code(s): E78.2 - Mixed hyperlipidemia (4) DVT prophylaxis Current Visit: Yes Status: Acute Assessment and plan: Patient on heparin drip. - Subjective Interval history: Patient seen and examined. Chart reviewed. Patient is comfortably lying in the bed. Patient denies chest pain, shortness of breath, dizziness - Constitutional Vitals: Temp Pulse Resp BP Pulse Ox 98.2 F 62 17 125/75 94 03/07/17 07:00 03/07/17 07:00 03/07/17 07:00 03/07/17 07:00 03/07/17 07:00 General appearance: Present: cooperative, A&O X 3, pleasant, no acute distress, answers questions appropriately - Head Head exam: Present: atraumatic, normocephalic - Eye Eye exam: Present: PERRL, conjuntiva pink, sclera anicteric Pupils: Present: PERRL - Neck Neck exam general surgery: Present: supple, trachea midline. Absent: lymphadenopathy - Respiratory Respiratory exam: Present: CTAB. Absent: accessory muscle use, rales, rhonchi, wheezes - Cardiovascular Cardiovascular exam: Present: RRR, +S1, +S2. Absent: diastolic murmur, gallop, rubs, systolic murmur - GI/Abdominal GI/Abdominal exam: Present: normal bowel sounds, soft, no peritoneal signs. Absent: distended, tenderness - Extremities Exam Extremities exam: Present: warm, radial pulses palpable and symetrical. Absent : calf tenderness, cyanotic, pedal edema - Neurological Exam Neurological exam: Present: CN II-XII intact, oriented X3, no focal deficits. Absent: pronater drift, facial droop, speech deficit - Skin Skin exam: Present: dry, intact Internal Medicine: Result - Labs CBC & Chem 7: 03/05/17 04:14 03/05/17 04:14 - ABG Interpretation ABG results: PT/INR, D-dimer PT 12.4 Seconds (9.4-12.1) H 03/03/17 03:40 Consult Discharge Plan - Plan Referrals: Partha Walker Jr, MD [Primary Care Provider] - 03/12/17 11:00 am
[2017-03-08] MEDS: Heparin 25,000 UNIT/500 ML D5W 25,000 UNIT/500 ML MLS IVC SCH (00:03)
[2017-03-08 04:29] LABS: Basophils # 0.1 K/mcL (0.0-0.2); Basophils % 0.7 %; Eosinophils # 0.3 K/mcL (0.0-0.6); Eosinophils % 4.2 %; Hematocrit 43.9 % (37.5-50.1); Hemoglobin 14.8 g/dL (12.9-16.9); Immature Granulocytes % 0.5 % (0-4); Lymphocytes # 2.4 K/mcL (0.6-4.6); Lymphocytes % 31.5 %; Mean Corpuscular HGB Conc 33.7 g/dL (31.6-35.5); Mean Corpuscular Hemoglobin 31.1 pg (28.0-33.3); Mean Corpuscular Volume 92.2 fL (83.0-100.0); Mean Platelet Volume 9.6 fL (9.4-12.4); Monocytes # 0.7 K/mcL (0.0-1.3); Monocytes % 8.5 %; Neutrophils # 4.2 K/mcL (1.6-8.9); Platelet Count 158 K/mcL (140-400); Red Blood Count 4.76 M/mcL (4.19-5.50); Red Cell Distribution Width 13.4 % (11.5-14.5); Segmented Neutrophils % 54.6 %
[2017-03-08 04:54] LABS: Alanine Aminotransferase 32 Units/L (0-55); Albumin 3.6 g/dL (3.5-5.0); Albumin/Globulin Ratio 1.3 (1.1-2.2); Alkaline Phosphatase 60 Units/L (38-126); Aspartate Amino Transferase 21 Units/L (5-34); BUN/Creatinine Ratio 21 (6-26); Bilirubin,Total 0.9 mg/dL (0.2-1.2); Blood Urea Nitrogen 21 mg/dL (8-26); Calcium 9.7 mg/dL (8.6-10.8); Carbon Dioxide 19 mEq/L (19-29); Chloride 109 mEq/L (98-109); Globulin 2.8 g/dL (2.4-3.5); Glucose 105 mg/dL (70-99); Osmolality,Calculated 289 (280-300); Sodium 138 mEq/L (136-145); Total Protein 6.4 g/dL (6.0-8.3); eGFR For African Americans > 60 (> 60); eGFR For Non-African Americans > 60 (> 60)
[2017-03-08] MEDS: Metoprolol XL (24 HR) Succ 25 MG TAB.ER.24H PO SCH (09:31)
[2017-03-08] MEDS: Aspirin 81 MG TAB.CHEW PO SCH (09:31)
[2017-03-08] MEDS: Chlorhexidine Rinse 15 ML MOUTHWASH MM SCH ×2 (09:32→20:01)
--- NOTE | 2017-03-08 09:37 | Cardiothoracic Progress Note ---
Date of Encounter: 03/08/17 Time of Encounter: 09:36 - Assessment and plan (1) NSTEMI (non-ST elevated myocardial infarction) Current Visit: Yes Status: Acute The patient is an 86-year-old man with hypercholesterolemia who presented to [facility] with left subscapular pain which migrated to his left precordial region on Thursday, on March 01, 201717. The patient was evaluated and found to have elevated troponin I levels consistent with an acute NSTEMI. Cardiac workup including a transthoracic echocardiogram revealed an LVEF 45-50% . 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 The patient has been recommended for CABG; however, unfortunately the patient received a loading dose of Plavix yesterday and the CABG will be postponed for 5-7 days to allow the antiplatelet effect to diminish. The STS risk calculator revealed an operative mortality 2.8%, deep sternal wound infection 0.6%, and a reoperation rate 6%. The patient understands the procedure, benefits, alternatives, and benefits of the CABG procedure, and gives his informed consent. Tentatively, the CABG is planned for Thursday, March 09, 2017. The patient The assessment and plan as outlined above was discussed with the patient and/or family members who expressed understanding and agreement. All questions were answered. - Subjective Interval history: The patient is resting comfortably in his hospital bed. He has no complaints of substernal chest pain or shortness of breath. Vital Signs, Last 4 Hours Temp Pulse Resp BP Pulse Ox 03/08/17 06:59 97.9 F 59 15 110/62 95 Oxgyen Flow Rate Oxygen Flow Rate (LPM) 2 Weight 03/06/17 03/07/17 03/08/17 23:59 23:59 23:59 Weight 85.2 kg 82.5 kg - Physical Examination General: Conversant, No Apparent Distress Neck: No JVD, Normal carotid pulses Cardiac: Reg Rate and Rhythm, Normal S1 and S2, No Murmur Lungs: Normal Breath Sounds, No Wheeze, Rales, Rhonchi Neuro: Alert and responsive, No focal deficits noted Vascular: Normal capillary refill Musculoskeletal: No Chest Wall Tenderness Extremities: No Clubbing, No Cyanosis, No Edema - Labs 03/08/17 04:00 03/08/17 04:00 Lab Results, Last 24 hours 03/08/17 03/08/17 03/08/17 04:00 04:00 04:00 WBC 7.6 Hgb 14.8 Hct 43.9 Plt Count 158 APTT 76.3 H Sodium 138 Potassium 4.0 Chloride 109 Carbon Dioxide 19 BUN 21 Creatinine 1.00 Glucose 105 H Calcium 9.7 Total Bilirubin 0.9 AST 21 ALT 32 Alkaline Phosphatase 60 Consult Discharge Plan - Plan Referrals: Partha Walker Jr, MD [Primary Care Provider] - 03/12/17 11:00 am
--- NOTE | 2017-03-08 10:34 | Internal Med Progress Note ---
Date of Encounter: 03/08/17 Time of Encounter: 10:32 - Assessment and plan (1) NSTEMI (non-ST elevated myocardial infarction) Current Visit: Yes Status: Acute Assessment and plan: Troponin 0.18, 0.16. With non-specific ST/T wave changes on EKG. Pain started after waking up, worse with exertion, pain located between shoulders. Pain since resolved. Seen and followed by Cardiology. Echocardiogram showed LVEF 45-50%. Continue BB, asa, and statin. Patient underwent LHC, found to have triple vessel disease, plan for CABG on Thursday02/06/17 as patient received loading dose of Plavix. 03/07/2017. No new developments overnight. CABG planned Thursday02/06/17 03/08/2017 no new complaints slept well CABG tomorrow (2) Lymphoma Current Visit: Yes Status: Acute Assessment and plan: Stable, noted to be in remission for 9 years. Qualifiers: Lymphoma type: unspecified type Lymphoma site: unspecified region Qualified Code(s): C85.90 - Non-Hodgkin lymphoma, unspecified, unspecified site (3) HLD (hyperlipidemia) Current Visit: Yes Status: Chronic Assessment and plan: Risk factor modification. Continue statin. Qualifiers: Hyperlipidemia type: mixed hyperlipidemia Qualified Code(s): E78.2 - Mixed hyperlipidemia (4) DVT prophylaxis Current Visit: Yes Status: Acute Assessment and plan: Patient on heparin drip. - Subjective Interval history: Patient seen and examined. Chart reviewed. Patient is comfortably lying in the bed. Patient denies chest pain, shortness of breath, dizziness 03/08/2017 seen and examined. chart reviewed. denies any new complaints denies chest pain or SOB - Constitutional Vitals: Temp Pulse Resp BP Pulse Ox 97.9 F 59 15 110/62 95 03/08/17 06:59 03/08/17 06:59 03/08/17 06:59 03/08/17 06:59 03/08/17 06:59 General appearance: Present: cooperative, A&O X 3, pleasant, no acute distress, answers questions appropriately - Head Head exam: Present: atraumatic, normocephalic - Eye Eye exam: Present: PERRL, conjuntiva pink, sclera anicteric Pupils: Present: PERRL - Neck Neck exam general surgery: Present: supple, trachea midline. Absent: lymphadenopathy - Respiratory Respiratory exam: Present: CTAB. Absent: accessory muscle use, rales, rhonchi, wheezes - Cardiovascular Cardiovascular exam: Present: RRR, +S1, +S2. Absent: diastolic murmur, gallop, rubs, systolic murmur - GI/Abdominal GI/Abdominal exam: Present: normal bowel sounds, soft, no peritoneal signs. Absent: distended, tenderness - Extremities Exam Extremities exam: Present: warm, radial pulses palpable and symetrical. Absent : calf tenderness, cyanotic, pedal edema - Neurological Exam Neurological exam: Present: CN II-XII intact, oriented X3, no focal deficits. Absent: pronater drift, facial droop, speech deficit - Skin Skin exam: Present: dry, intact Internal Medicine: Result - Labs CBC & Chem 7: 03/08/17 04:00 03/08/17 04:00 Labs: Short CBC 03/08/17 Range/Units 04:00 WBC 7.6 (4.3-11.1) K/mcL Hgb 14.8 (12.9-16.9) g/dL Hct 43.9 (37.5-50.1) % Plt Count 158 (140-400) K/mcL Neutrophils # 4.2 (1.6-8.9) K/mcL BMP 03/08/17 04:00 Sodium 138 Potassium 4.0 Chloride 109 Carbon Dioxide 19 BUN 21 Creatinine 1.00 Glucose 105 H Calcium 9.7 Liver Function 03/08/17 Range/Units 04:00 Total Bilirubin 0.9 (0.2-1.2) mg/dL AST 21 (5-34) Units/L ALT 32 (0-55) Units/L Alkaline Phosphatase 60 (38-126) Units/L Albumin 3.6 (3.5-5.0) g/dL - ABG Interpretation ABG results: PT/INR, D-dimer PT 12.4 Seconds (9.4-12.1) H 03/03/17 03:40 Consult Discharge Plan - Plan Referrals: Partha Walker Jr, MD [Primary Care Provider] - 03/12/17 11:00 am
[2017-03-09] MEDS: Heparin 25,000 UNIT/500 ML D5W 25,000 UNIT/500 ML MLS IVC SCH ×3 (00:07→17:25)
[2017-03-09] MEDS ORDERED: *HR* Rocuronium Bromide 50 MG/5 ML VIAL ONE (06:40)
[2017-03-09] MEDS ORDERED: *HR* Norepinephrine 4 MG/4 ML VIAL IVC ONE (06:40)
[2017-03-09] MEDS ORDERED: *HR* Etomidate 20 MG/10 ML AMPUL IVP ONE (06:40)
[2017-03-09] MEDS ORDERED: Protamine Sulfate 250 MG/25 ML VIAL IVP ONE (06:40)
[2017-03-09] MEDS ORDERED: Tranexamic Acid 1,000 MG/10 ML VIAL ONE ×2 (06:40→08:41)
[2017-03-09] MEDS ORDERED: Famotidine 20 MG/2 ML VIAL ONE (06:40)
[2017-03-09] MEDS ORDERED: *HR* Phenylephrine 10 MG/ML VIAL ONE (06:40)
[2017-03-09] MEDS ORDERED: Nitroglycerin 25 MG/250 ML INFUS..BTL IVC ONE ×2 (06:47→09:41)
[2017-03-09] MEDS ORDERED: *HR* Midazolam HCl 5 MG/5 ML VIAL IVP ONE (06:53)
[2017-03-09] MEDS ORDERED: *HR* FentaNYL (PF) 1,000 MCG/20 ML VIAL ONE (06:54)
--- NOTE | 2017-03-09 07:14 | Anesthesia Evaluation PreOp ---
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 Acidophilus/Pectin, [place] [Acidophilus Probiotic Capsule] 1 cap PO DAILY [History] Nitroglycerin [Nitrostat] 0.4 mg SL AD PRN 03/02/17 [History] Allergies codeine Adverse Reaction (Unknown, Verified 04/18/16 10:30) other feels like he is floating - Meds/Allergy Pre-op Review Medications Reviewed: Yes Allergies Reviewed: Yes Beta Blockers on Current Med List: Yes If Beta Blockers taken, Date/Time (Last Dose taken): 92003/08/17 Anesthesia Results - Labs 03/08/17 04:00 03/08/17 04:00 - Imaging EKG: report reviewed Chest x-ray: report reviewed Additional studies: Cath shows severe 3 vessel disease Echo shows EF 45-50% Anesthesia Exam Selected Entries 03/09/17 05:19 Temperature 97.6 F Pulse Rate 75 Respiratory Rate 16 Blood Pressure 114/62 O2 Sat by Pulse Oximetry 96 Height: 67in Weight: 82.5kg NPO (# of Hours): 8 Pain Scale: 0 Pain Scale Used: Numeric (1 - 10) - HEENT Pupil (Motor): EOMI Mallampati: II Teeth: Missing Oral Opening: Greater than 3 (has limited mouth opening and deviation to the left) - 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 Questions answered and agrees to proceed.)
[2017-03-09] MEDS ORDERED: ceFAZolin 2,000 MG in D5% in Water 100 ML IVPB ONE (07:32)
[2017-03-09] MEDS: Ringers Solution, Lactated 1,000 ML IVC SCH ×2 (07:45→11:12)
[2017-03-09] MEDS ORDERED: *HR* Amiodarone 150 MG/3 ML VIAL IVPB ONE (08:33)
[2017-03-09] MEDS ORDERED: Amiodarone Premix 360 MG/200 ML BAG IVC ONE (08:33)
--- NOTE | 2017-03-09 08:57 | Anesthesia Procedures ---
Date of Encounter: 03/09/17 Time of Encounter: 07:50 Procedures: Anesthesia - Arterial Line Consent obtained: written consent Time out performed: Yes Sedation: Versed (mg): 1 Sedation: Fentanyl (mcg): 50 Supplemental Oxygen via Nasal Cannula (L/min): 2 Local Anesthetic: Lidocaine 1% Amount of Anesthetic used (mls): 1 Size (Gauge): 20 Length (inches): 5 Technique Used: sterile prep, guide wire technique, direct puncture technique Post-Procedure: line taped into place, dry sterile dressing placed Patient tolerated procedure: well, no complications Complications: none Site: Brachial L (poor pulse in left radial, attempted without success. Moved to left brachial, attempt x 1, successful.) - Central Line Placement Right IJ Consent obtained: written consent Time out performed: Yes Patient placed on monitor/pulse ox: Yes prep: mask, gown, gloves Central line prep: Chlorhexidine scrub Ultrasound used for placement: Yes Technique: Seldinger Lumen Inserted: Introducer Post procedure: sutured in place, good blood return, all ports aspirated, flushed, capped, sterile dressing applied Patient tolerated procedure: well, no complications (attempt x 1 easy, pass swan and get arrythmia (SVT), resolves with pull bvack. Unable to wedge, leave cath approx 55cm)
[2017-03-09] MEDS ORDERED: 0.9 % Sodium Chloride 500 ML ONE (09:41)
[2017-03-09] MEDS ORDERED: Albumin Human 5% 50.0 GM/1,000 ML VIAL ONE (09:42)
[2017-03-09] MEDS ORDERED: Insulin Regular, Human 100 UNIT/ML IV PRN (11:29)
[2017-03-09] MEDS ORDERED: Potassium Chloride 40 MEQ/200 ML BAG IVPB PRN (11:29)
[2017-03-09] MEDS ORDERED: Calcium Chloride 1,000 MG in 0.9 % Sodium Chloride 100 ML IVPB PRN (11:29)
[2017-03-09] MEDS ORDERED: *HR* Morphine 2 MG/ML SYRINGE IVP PRN (11:29)
[2017-03-09] MEDS ORDERED: Acetaminophen 325 MG TABLET PO PRN (11:29)
[2017-03-09] MEDS ORDERED: Acetaminophen 650 MG RECTAL SUPP RC PRN (11:29)
[2017-03-09] MEDS ORDERED: Magnesium Sulfate 2 GM in D5% in Water 100 ML IVPB PRN (11:29)
[2017-03-09] MEDS ORDERED: *HR* Dextrose 50 % in Water (Syg) 50 ML SYRINGE IVP PRN (11:29)
--- NOTE | 2017-03-09 11:29 | Operative Note ---
Date of procedure: 03/09/17 Pre-op diagnosis: NSTEMI Post-op diagnosis: same Procedure: 1. CABG4 (PHAM to LAD, sequential SVG to OM1 and OM 2, SVG to PDA). 2. Endoscopic vein harvesting, greater saphenous vein from right lower extremity. Implants: None. Complications: None. Anesthesia: EBONY Surgeon: [facility] Associate: Dane Oneill Specimen: None. Condition: stable Disposition: ICU Procedure in Detail: INDICATIONS FOR OPERATION: The patient is a 86 year old man with hypercholesterolemia who experienced left subscapular 'tingling' upon awakening on Wednesday, March 01, 2017. During the day the pain migrated from his subscapular region around his chest to the left precordial area. He had recently been evaluated by cardiology and diagnosed with stable angina. He had been aspirin prescribed by his primary care physician and nitroglycerin prescribed by the literature teacher. He took for aspirin and 3 nitroglycerin spaced 5 minutes apart. When the pain did not resolve, he was evaluated [facility] emergency department and was found to have elevated troponin I levels consistent with an acute NSTEMI. He received Plavix and was admitted for further cardiac workup. The patient underwent a transthoracic echocardiogram which revealed an LVEF 45- 50% with mild mitral regurgitation and mild tricuspid regurgitation. Subsequent cardiac catheterization performed yesterday revealed severe 3 vessel CAD and an LVEF 30%. In particular the patient has completely occluded proximal LAD which fills distally the right to left collaterals, a 95% proximal LCx lesion, an 80% mid LCx lesion, a 95% proximal OM1 lesion, a 50% mid RCA lesion, and an 80% distal RCA lesion. The patient has been recommended for CABG. FINDINGS AT OPERATION: The aorta was of normal caliber and slightly thickened. No calcification was noted. The coronary arteries was approximately 1.5-20 mm in diameter and had mild distal disease, particularly the LAD. The greater saphenous vein was harvested endoscopically from the right lower extremity from the knee to the groin and was of good quality. Total bypass time was 72 minutes, cross-clamp time 42 minutes, temperature 34.5C. DESCRIPTION OF OPERATION: After obtaining informed consent from the patient, he was taken to the operating room where satisfactory general endotracheal anesthetic was induced. Appropriate monitoring lines were placed, and the patient's chest, abdomen, and lower extremity were prepped and draped in a sterile fashion. The greater saphenous vein was harvested endoscopically from the right lower extremity from the knee to the groin was of good quality. The subcutaneous tissue and skin edges were reapproximated using running Vicryl sutures. Simultaneously a standard median sternotomy incision was made and the sternum divided. The PHAM was taken down from its bed and side branches divided between hemoclips. The sternum was and the pericardium opened and reflected laterally. The patient developed atrial fibrillation and required a skin potential synchronized cardioversion in order to regain normal sinus rhythm. He was loaded with amiodarone and an amiodarone drip was begun. The patient was prepared for cannulation by placing pursestring sutures in the distal ascending aorta, mid-ascending aorta, and right atrial appendage. The patient was heparinized and when the ACT was greater than 200 seconds, the distal aorta was cannulated followed by placement of a dual stage venous cannula through the right atrial appendage and into the inferior vena cava. A stab-in antegrade metabolic and was placed in the mid-ascending aorta. The patient was placed on bypass and the temperature allowed to drift to 34.5 C. The distal targets were notified and the aorta was crossclamped. The patient received 1000 mL of cold antegrade crystalloid cardioplegia aortic root and the patient's heart obtained diastolic arrest. The PDA was opened with a [place] blade and the vein was anastomosed in an end-to -side fashion using running 7-0 Prolene suture. The anastomosis was found to be hemostatic. This process was repeated for the OM2 branch. The anastomosis was found to be hemostatic. The OM1 branch was opened. Blade and the vein was opened longitudinal fashion so the [id number]-mr-[id number] anastomosis could be completed using a running 7-0 Prolene suture. The anastomosis was found to be hemostatic and the patient received a final dose of cold antegrade crystalloid cardioplegia through the aortic root. The LAD was opened with the [place] blade and the PHAM was anastomosed in end-to-side fashion using running 7-0 Prolene suture. The anastomosis found to be hemostatic and the mammary pedicle was tacked to the epicardium using interrupted 5-0 silk suture. Rewarming was begun during this anastomosis. The aortic cross-clamp was removed and the heart distended. The veins were measured and cut at appropriate lengths. A partial occluding clamps placed across mid-ascending aorta and the antegrade cardioplegia cannula was removed. An additional aortotomy site was made 11 blade and both sites were enlarged with a 4 mm punch. The veins were anastomosed in an end-to-side fashion to the aorta using a running 5-0 Prolene suture. The vein grafts were occluded with bulldog clamp anterior to 25-gauge needle prior to removing the partial occluding clamp. The proximal and distal anastomoses were found to be hemostatic. The proximal anastomoses were marked with radiopaque loops. Two right ventricular temporary epicardial patient is replaced, and 3 chest tubes were placed, 2 in the mediastinum and one into the left pleural space. During rewarming the patient's heart rhythm degenerated to ventricular fibrillation and he required a single 10 J direct current shock in order to regain normal sinus rhythm. When the patient's systemic temperature is 36C, he was ventilated received volume. He was weaned from bypass required no inotropic support. Protamine was administered and the aortic and venous cannulas removed. The pursestring sutures were secured. Both the aortic and venous cannulation sites were reinforced with 4 Prolene sutures. The pericardium was loosely approximated in the midline using interrupted 0 silk suture and the sternum was reapproximated using sternal wires. The pectoralis major fascia, rectus abdominis fascia, subcutaneous tissue, and skin edges were reapproximated using running Vicryl sutures. Sterile dressings were applied. The patient was transferred to the ICU in satisfactory postoperative condition. There were no intraoperative compilations, and instrument, needle, and sponge count were correct at end of operation. - Open Heart Detail RENNY (Internal Mammary Artery) Usage: Yes Cardiopulmonary Bypass Time (mins): 72 Aortic Cross Clamp Time (mins): 42 Intentional Hypothermia Temperature (C.): 34.5
[2017-03-09] MEDS: Norepinephrine 4 MG in D5% in Water 250 ML IVC SCH ×2 (11:41→22:01)
[2017-03-09 12:09] LABS: ABG Base Excess 0.3 mEq/L (-2.0 to 3.0); ABG HCO3 24.6 mEQ/L (21-27); ABG Oxygen Saturation 100 % (95-98); ABG PCO2 38 mmHg (35-45); ABG PO2 183 mmHg (85-104); ABG TCO2 25.8 mEq/L (20-26)
[2017-03-09 12:10] LABS: Basophils % 0.2 %; Blood Gas FiO2 90 %; Blood Gas PEEP 5 cm H2O; Blood Gas Respiration Rate 12; Blood Gas VT 650 cc; Eosinophils # 0.3 K/mcL (0.0-0.6); Eosinophils % 1.5 %; Hematocrit 40.4 % (37.5-50.1); Hemoglobin 13.8 g/dL (12.9-16.9); Immature Granulocytes % 0.8 % (0-4); Lymphocytes # 3.2 K/mcL (0.6-4.6); Lymphocytes % 17.2 %; Mean Corpuscular HGB Conc 34.2 g/dL (31.6-35.5); Mean Corpuscular Volume 90.8 fL (83.0-100.0); Mean Platelet Volume 9.8 fL (9.4-12.4); Monocytes # 0.8 K/mcL (0.0-1.3); Monocytes % 4.2 %; Neutrophils # 14.3 K/mcL (1.6-8.9); Platelet Count 111 K/mcL (140-400); Red Blood Count 4.45 M/mcL (4.19-5.50); Red Cell Distribution Width 13.2 % (11.5-14.5); Segmented Neutrophils % 76.1 %
[2017-03-09 12:12] LABS: ABG PH 7.42 pH Units (7.32-7.45)
[2017-03-09] MEDS: Nitroglycerin 25 MG/250 ML INFUS..BTL IVC SCH ×2 (12:15→20:04)
[2017-03-09 12:16] LABS: INR 1.5
[2017-03-09 12:19] LABS: Activated Partial Thrombo Time 40.1 Seconds (26.0-36.0)
[2017-03-09 12:23] LABS: Prothrombin Time 16.9 Seconds (9.4-12.1)
[2017-03-09 12:50] LABS: Hematocrit 44.4 % (37.5-50.1); Hemoglobin 15.2 g/dL (12.9-16.9); Immature Granulocytes % 0.8 % (0-4); Lymphocytes % 15.7 %; Mean Corpuscular HGB Conc 34.2 g/dL (31.6-35.5); Mean Corpuscular Volume 90.6 fL (83.0-100.0); Mean Platelet Volume 9.8 fL (9.4-12.4); Red Cell Distribution Width 13.2 % (11.5-14.5); Segmented Neutrophils % 78.8 %
[2017-03-09 12:51] LABS: Basophils % 0.2 %; Eosinophils # 0.2 K/mcL (0.0-0.6); Lymphocytes # 2.6 K/mcL (0.6-4.6); Monocytes # 0.6 K/mcL (0.0-1.3); Monocytes % 3.5 %; Neutrophils # 12.9 K/mcL (1.6-8.9)
[2017-03-09 12:56] LABS: INR 1.4
[2017-03-09] MEDS: 0.9 % Sodium Chloride w KCl 20 MEQ/1,000 ML MLS IVC SCH (12:58)
[2017-03-09] MEDS: Amiodarone Premix 360 MG/200 ML BAG IVC ONE ×2 (12:58→14:03)
[2017-03-09 12:59] LABS: Activated Partial Thrombo Time 35.1 Seconds (26.0-36.0)
[2017-03-09] MEDS: Pantoprazole 40 MG VIAL IVP SCH (12:59)
[2017-03-09] MEDS: Metoclopramide 10 MG/2 ML VIAL IVP SCH ×3 (12:59→23:11)
[2017-03-09 13:02] LABS: Platelet Count 103 K/mcL (140-400); Prothrombin Time 15.3 Seconds (9.4-12.1)
[2017-03-09 13:03] LABS: BUN/Creatinine Ratio 17 (6-26); Blood Urea Nitrogen 16 mg/dL (8-26); Carbon Dioxide 27 mEq/L (19-29); Chloride 108 mEq/L (98-109); Glucose 92 mg/dL (70-99); Magnesium 2.8 mg/dL (1.6-2.6); Osmolality,Calculated 295 (280-300); Potassium 3.5 mEq/L (3.5-4.5); eGFR For African Americans > 60 (> 60); eGFR For Non-African Americans > 60 (> 60)
[2017-03-09] MEDS: Metoprolol XL (24 HR) Succ 25 MG TAB.ER.24H PO SCH (13:04)
[2017-03-09 13:05] LABS: Calcium 9.9 mg/dL (8.6-10.8)
[2017-03-09 13:06] LABS: Sodium 142 mEq/L (136-145)
[2017-03-09 13:48] LABS: ABG PCO2 44 mmHg (35-45); ABG PH 7.38 pH Units (7.32-7.45); ABG PO2 313 mmHg (85-104); ABG TCO2 27.4 mEq/L (20-26)
[2017-03-09 13:49] LABS: ABG Base Excess 0.5 mEq/L (-2.0 to 3.0); ABG Glucose 90 mg/dL (60-95); ABG Hematocrit 43 % (35-51); ABG Ionized Calcium 1.36 mmol/L (1.15-1.35); ABG Oxygen Saturation 100 % (95-98)
[2017-03-09 13:51] LABS: ABG Base Excess -5.6 mEq/L (-2.0 to 3.0); ABG HCO3 21.5 mEQ/L (21-27); ABG Hematocrit 35 % (35-51); ABG Oxygen Saturation 99 % (95-98); ABG PCO2 48 mmHg (35-45); ABG PH 7.26 pH Units (7.32-7.45); ABG PO2 173 mmHg (85-104)
[2017-03-09 13:52] LABS: ABG Glucose 152 mg/dL (60-95); ABG Ionized Calcium 1.06 mmol/L (1.15-1.35)
[2017-03-09 13:53] LABS: ABG PCO2 38 mmHg (35-45); ABG PH 7.44 pH Units (7.32-7.45)
[2017-03-09 13:54] LABS: ABG Base Excess 1.6 mEq/L (-2.0 to 3.0); ABG Glucose 203 mg/dL (60-95); ABG HCO3 25.8 mEQ/L (21-27); ABG Hematocrit 29 % (35-51); ABG Ionized Calcium 0.98 mmol/L (1.15-1.35); ABG Oxygen Saturation 100 % (95-98); ABG PO2 456 mmHg (85-104)
[2017-03-09 13:56] LABS: ABG Base Excess 0.7 mEq/L (-2.0 to 3.0); ABG Glucose 182 mg/dL (60-95); ABG HCO3 25.4 mEQ/L (21-27); ABG Hematocrit 28 % (35-51); ABG Ionized Calcium 1.05 mmol/L (1.15-1.35); ABG Oxygen Saturation 100 % (95-98); ABG PCO2 40 mmHg (35-45); ABG PH 7.41 pH Units (7.32-7.45); ABG PO2 370 mmHg (85-104); ABG TCO2 26.6 mEq/L (20-26)
[2017-03-09 13:58] LABS: ABG Base Excess -0.3 mEq/L (-2.0 to 3.0); ABG HCO3 24.8 mEQ/L (21-27); ABG Oxygen Saturation 99 % (95-98); ABG PCO2 42 mmHg (35-45); ABG PH 7.38 pH Units (7.32-7.45); ABG PO2 138 mmHg (85-104); ABG TCO2 26.1 mEq/L (20-26)
[2017-03-09 13:59] LABS: ABG Glucose 135 mg/dL (60-95); ABG Hematocrit 26 % (35-51); ABG Ionized Calcium 1.49 mmol/L (1.15-1.35)
[2017-03-09] MEDS: *HR* Morphine 2 MG/ML SYRINGE IVP PRN (15:12)
[2017-03-09] MEDS: Insulin Human Regular 100 UNIT in 0.9 % Sodium Chloride 100 ML IVC SCH (15:27)
[2017-03-09 16:03] LABS: ABG Base Excess -0.5 mEq/L (-2.0 to 3.0); ABG HCO3 24.9 mEQ/L (21-27); ABG Oxygen Saturation 100 % (95-98); ABG PCO2 43 mmHg (35-45); ABG PO2 220 mmHg (85-104); ABG TCO2 26.2 mEq/L (20-26)
[2017-03-09 16:05] LABS: Blood Gas FiO2 70 %
[2017-03-09 16:06] LABS: ABG PH 7.37 pH Units (7.32-7.45)
[2017-03-09] MEDS: ceFAZolin 2,000 MG in D5% in Water 100 ML IVPB SCH ×2 (16:10→23:11)
[2017-03-09 16:23] LABS: Basophils % 0.2 %; Eosinophils # 0.1 K/mcL (0.0-0.6); Eosinophils % 0.4 %; Hematocrit 37.5 % (37.5-50.1); Hemoglobin 12.6 g/dL (12.9-16.9); Immature Granulocytes % 1.1 % (0-4); Lymphocytes # 1.9 K/mcL (0.6-4.6); Lymphocytes % 8.9 %; Mean Corpuscular HGB Conc 33.6 g/dL (31.6-35.5); Mean Corpuscular Hemoglobin 31.2 pg (28.0-33.3); Mean Corpuscular Volume 92.8 fL (83.0-100.0); Monocytes # 2.2 K/mcL (0.0-1.3); Monocytes % 10.5 %; Neutrophils # 16.5 K/mcL (1.6-8.9); Platelet Count 120 K/mcL (140-400); Red Blood Count 4.04 M/mcL (4.19-5.50); Red Cell Distribution Width 13.5 % (11.5-14.5); Segmented Neutrophils % 78.9 %
[2017-03-09] MEDS ORDERED: Lidocaine 2% Syringe 100 MG/5 ML IVP ONE (16:34)
[2017-03-09] MEDS ORDERED: *HR* Phenylephrine 10 MG/ML VIAL IC ONE (16:34)
[2017-03-09] MEDS ORDERED: Mannitol 25% vial 12.5 GM/50 ML VIAL IVP ONE (16:34)
[2017-03-09] MEDS ORDERED: Albumin Human 25% 25 GM/100 ML IV.SOLN IV ONE (16:34)
[2017-03-09] MEDS ORDERED: *HR* Heparin 10,000 UNIT/10 ML VIAL IV ONE (16:34)
[2017-03-09] MEDS ORDERED: *HR* Magnesium Sulfate 2 GM/50 ML PIGGYBACK IVPB ONE (16:34)
[2017-03-09] MEDS: niCARdipine 40 MG/200 ML MLS IVC SCH ×2 (17:25→20:04)
[2017-03-09 18:24] LABS: ABG HCO3 24.3 mEQ/L (21-27); ABG Oxygen Saturation 94 % (95-98); ABG PCO2 42 mmHg (35-45); ABG PH 7.37 pH Units (7.32-7.45); ABG PO2 75 mmHg (85-104); ABG TCO2 25.6 mEq/L (20-26); Blood Gas FiO2 28 %
[2017-03-09] MEDS: Amiodarone Premix 360 MG/200 ML BAG IVC SCH (20:01)
[2017-03-09] MEDS: Chlorhexidine Rinse 15 ML MOUTHWASH MM SCH (20:02)
[2017-03-09] MEDS: *HR* OxyCODONE/APAP 5/325 TABLET PO PRN (20:03)
[2017-03-10] MEDS: niCARdipine 40 MG/200 ML MLS IVC SCH ×3 (00:11→19:30)
[2017-03-10 03:04] LABS: Basophils % 0.1 %; Hematocrit 34.9 % (37.5-50.1); Hemoglobin 11.6 g/dL (12.9-16.9); Immature Granulocytes % 0.5 % (0-4); Immature Platelets 4.1 % (1.1-6.1); Lymphocytes # 1.5 K/mcL (0.6-4.6); Lymphocytes % 10.2 %; Mean Corpuscular HGB Conc 33.2 g/dL (31.6-35.5); Mean Corpuscular Hemoglobin 30.8 pg (28.0-33.3); Mean Corpuscular Volume 92.6 fL (83.0-100.0); Mean Platelet Volume 9.4 fL (9.4-12.4); Monocytes # 1.6 K/mcL (0.0-1.3); Monocytes % 10.6 %; Neutrophils # 11.6 K/mcL (1.6-8.9); Platelet Count 121 K/mcL (140-400); Red Blood Count 3.77 M/mcL (4.19-5.50); Red Cell Distribution Width 13.4 % (11.5-14.5); Segmented Neutrophils % 78.6 %
[2017-03-10 03:09] LABS: INR 1.4; Prothrombin Time 14.8 Seconds (9.4-12.1)
[2017-03-10 03:11] LABS: Activated Partial Thrombo Time 30.3 Seconds (26.0-36.0)
[2017-03-10 03:16] LABS: Calcium 9.2 mg/dL (8.6-10.8); Magnesium 2.2 mg/dL (1.6-2.6); Potassium 4.5 mEq/L (3.5-4.5)
[2017-03-10] MEDS: *HR* Morphine 2 MG/ML SYRINGE IVP PRN (04:20)
[2017-03-10] MEDS: Norepinephrine 4 MG in D5% in Water 250 ML IVC SCH ×2 (04:23→17:18)
[2017-03-10] MEDS: Metoclopramide 10 MG/2 ML VIAL IVP SCH ×4 (05:00→23:35)
[2017-03-10] MEDS: Amiodarone Premix 360 MG/200 ML BAG IVC SCH ×2 (05:51→17:11)
--- NOTE | 2017-03-10 06:43 | Cardiothoracic Progress Note ---
Date of Encounter: 03/10/17 Time of Encounter: 06:36 - Assessment and plan (1) NSTEMI (non-ST elevated myocardial infarction) Current Visit: Yes Status: Acute The patient is recovering well from his CABG 4. He remained hemodynamically stable overnight and is currently extubated. He is breathing comfortably. He had an episode of bradycardia last night and the temporary pacer was connected. His underlying rhythm is sinus bradycardia; however, his systolic blood pressure remains stable. The temporary pacer has been disconnected. The Levophed drip was being weaned slowly. His renal function has slightly deteriorated and will be monitored closely. The Sorrento-Shilpi catheter will be removed. The patient will be monitored in the ICU today until the Levophed drip has been discontinued and his renal function improves. The assessment and plan as outlined above was discussed with the patient and/or family members who expressed understanding and agreement. All questions were answered. - Subjective Procedure(s) Performed: POD#1 S/P CABG4 Interval history: The patient remained hemodynamically stable overnight. He is extubated and breathing comfortably. He has no complaints. Vital Signs, Last 4 Hours Temp Pulse Resp BP Pulse Ox 03/10/17 06:00 99.5 F 70 16 104/49 92 03/10/17 05:00 100.1 F H 60 16 101/49 92 03/10/17 04:05 14 92 03/10/17 04:00 51 16 108/44 93 03/10/17 03:01 51 19 108/43 92 Oxgyen Flow Rate Oxygen Flow Rate (LPM) 2.5 Clinical Data, last 8 Hours Output, Chest Tube Drainage 10 Amount [Mediastinal #2] Output, Chest Tube Drainage 10 Amount [Mediastinal #2] Output, Chest Tube Drainage 5 Amount [Mediastinal #2] Output, Chest Tube Drainage 0 Amount [Mediastinal #2] Output, Chest Tube Drainage 14 Amount [Mediastinal #2] Output, Chest Tube Drainage 12 Amount [Mediastinal #2] Output, Chest Tube Drainage 15 Amount [Mediastinal #2] Output, Chest Tube Drainage 10 Amount [Mediastinal #1] Output, Chest Tube Drainage 0 Amount [Mediastinal #1] Output, Chest Tube Drainage 5 Amount [Mediastinal #1] Output, Chest Tube Drainage 0 Amount [Mediastinal #1] Output, Chest Tube Drainage 0 Amount [Mediastinal #1] Output, Chest Tube Drainage 20 Amount [Mediastinal #1] Output, Chest Tube Drainage 20 Amount [Mediastinal #1] - Physical Examination General: Conversant, No Apparent Distress Neck: No JVD, Normal carotid pulses Cardiac: Reg Rate and Rhythm, Normal S1 and S2, No Murmur Incision: No signs of infection, Dry/intact dressing Sternum: Stable Chest tubes: Minimal drainage, Other (No air leak.) Pacing Wires: In place Lungs: Other (Wheezes bilaterally.) Neuro: Alert and responsive, No focal deficits noted Vascular: Normal capillary refill Extremities: No Clubbing, No Cyanosis, No Edema - Labs 03/10/17 03:00 03/10/17 03:00 Lab Results, Last 24 hours 03/09/17 03/09/17 03/09/17 05:13 11:58 11:58 WBC 18.8 H D Hgb 13.8 Hct 40.4 Plt Count 111 L INR 1.5 APTT 79.3 H 40.1 H Sodium Potassium Chloride Carbon Dioxide BUN Creatinine Glucose Calcium Magnesium 03/09/17 03/09/17 03/09/17 12:30 12:30 12:30 WBC 16.4 H Hgb 15.2 Hct 44.4 Plt Count 103 L INR 1.4 APTT 35.1 Sodium 142 Potassium 3.5 Chloride 108 Carbon Dioxide 27 BUN 16 Creatinine 0.95 Glucose 92 Calcium 9.9 Magnesium 2.8 H 03/09/17 03/09/17 03/10/17 15:50 15:50 03:00 WBC 20.9 H 14.7 H Hgb 12.6 L D 11.6 L Hct 37.5 34.9 L Plt Count 120 L 121 L INR APTT Sodium Potassium 4.6 H D Chloride Carbon Dioxide BUN Creatinine Glucose Calcium Magnesium 03/10/17 03/10/17 03:00 03:00 WBC Hgb Hct Plt Count INR 1.4 APTT 30.3 Sodium 139 Potassium 4.5 Chloride 109 Carbon Dioxide 20 BUN 19 Creatinine 1.54 H D Glucose 142 H Calcium 9.2 Magnesium 2.2 - Imaging Chest Xray: image reviewed (No pneumothorax. Minimal atelectasis/infiltrates.) - VTE Documentation of Mechanical Device: Graduated compression elastic hosiery Consult Discharge Plan - Plan Referrals: Partha Walker Jr, MD [Primary Care Provider] - 03/12/17 11:00 am
[2017-03-10] MEDS ORDERED: Furosemide 20 MG/2 ML VIAL IVP SCH (08:00)
[2017-03-10] MEDS: Pantoprazole 40 MG VIAL IVP SCH (09:21)
[2017-03-10] MEDS: *HR* Heparin 5,000 UNIT/ML VIAL SQ SCH ×2 (09:21→17:14)
[2017-03-10] MEDS: Aspirin 81 MG TAB.CHEW PO SCH (09:21)
[2017-03-10] MEDS: Chlorhexidine Rinse 15 ML MOUTHWASH MM SCH ×2 (09:21→20:34)
[2017-03-10] MEDS: *HR* OxyCODONE/APAP 5/325 TABLET PO PRN ×4 (09:21→23:47)
--- NOTE | 2017-03-10 12:35 | Anesthesia Evaluation Post Op ---
Date of Encounter: 03/10/17 Time of Encounter: 12:33 - Vital Signs Vital Signs: Selected Entries 03/10/17 12:00 Temperature 98.2 F Pulse Rate 61 Respiratory Rate 15 Blood Pressure 139/78 O2 Sat by Pulse Oximetry 91 Oxygen Flow Rate (LPM) 3 - Lungs Lungs: Clear Ascult./Percussion - Airway Airway: Non-obstructed - Cardiovascular Baseline Rhythm (paulina) - Mental Status Mental Status: Alert & Oriented, Answers Appropriately - Pain Pain Scale: 3 Pain Scale used: Numeric (1 - 10) - Nausea Vomiting Nausea Vomiting: Not Present - Hydration Hydration: Tolerates oral liquids, Galeano catheter Notes: 03/10/17 12:34 Doing well POD#1 CABG. No apparent anesthesia complications.
--- NOTE | 2017-03-10 13:50 | Internal Med Progress Note ---
Date of Encounter: 03/10/17 Time of Encounter: 09:45 - Assessment and plan (1) NSTEMI (non-ST elevated myocardial infarction) Current Visit: Yes Status: Acute Assessment and plan: Troponin 0.18, 0.16. With non-specific ST/T wave changes on EKG. Seen and followed by Cardiology. Echocardiogram showed LVEF 45-50%. Continue BB, asa, and statin. Patient underwent LHC, found to have triple vessel disease, plan for CABG on Thursday02/06/17 as patient received loading dose of Plavix. POD#1 s/p CABG - doing well (2) HLD (hyperlipidemia) Current Visit: Yes Status: Chronic Assessment and plan: Risk factor modification. Continue statin. Qualifiers: Hyperlipidemia type: mixed hyperlipidemia Qualified Code(s): E78.2 - Mixed hyperlipidemia (3) DVT prophylaxis Current Visit: Yes Status: Acute Assessment and plan: Heparin sc - Time Spent With Patient less than 15 minutes - Subjective Interval history: Patient is awake and alert. S/p CABG x4. Doing well. No acute events or complaints. No fever. Plan as per Dr Flores. - Constitutional Vitals: Temp Pulse Resp BP Pulse Ox 98.2 F 64 23 146/81 91 03/10/17 12:00 03/10/17 13:00 03/10/17 13:00 03/10/17 13:00 03/10/17 13:00 General appearance: Present: cooperative, A&O X 3, pleasant, no acute distress, answers questions appropriately - Head Head exam: Present: atraumatic - Eye Eye exam: Present: EOMI - Respiratory Respiratory exam: Present: CTAB. Absent: rhonchi, wheezes - Cardiovascular Cardiovascular exam: Present: RRR, +S1, +S2 Additional comments: s/p CABG - GI/Abdominal GI/Abdominal exam: Present: soft. Absent: guarding, tenderness - Extremities Exam Extremities exam: Present: radial pulses palpable and symetrical. Absent: cyanotic - Neurological Exam Neurological exam: Present: alert, oriented X3, no focal deficits Internal Medicine: Result - Labs CBC & Chem 7: 03/10/17 03:00 03/10/17 03:00 Labs: Short CBC 03/09/17 03/10/17 Range/Units 15:50 03:00 WBC 20.9 H 14.7 H (4.3-11.1) K/mcL Hgb 12.6 L D 11.6 L (12.9-16.9) g/dL Hct 37.5 34.9 L (37.5-50.1) % Plt Count 120 L 121 L (140-400) K/mcL Neutrophils # 16.5 H 11.6 H (1.6-8.9) K/mcL BMP 03/09/17 03/10/17 15:50 03:00 Sodium 139 Potassium 4.6 H D 4.5 Chloride 109 Carbon Dioxide 20 BUN 19 Creatinine 1.54 H D Glucose 142 H Calcium 9.2 - ABG Interpretation ABG results: ABG ABG pH 7.37 pH Units (7.32-7.45) 03/09/17 18:12 ABG pCO2 42 mmHg (35-45) 03/09/17 18:12 ABG pO2 75 mmHg (85-104) L 03/09/17 18:12 ABG O2 Saturation 94 % (95-98) L 03/09/17 18:12 PT/INR, D-dimer PT 14.8 Seconds (9.4-12.1) H 03/10/17 03:00 - Impressions Impressions Chest X-Ray 03/10/17 04:00 IMPRESSION: 1. Interval extubation of the previously identified endotracheal and nasogastric tubes, with otherwise stable support apparatus. 2. Mild multifocal atelectasis within the mid left lung and right lung base, with more subtle opacity within the retrocardiac left lower lobe which could represent additional atelectasis, aspiration, or pneumonia. 3. No evident pneumothorax. D/ /10/2017 08:48:41 Uriel Reyes MD / [email or web address] Interpreting Provider: Uriel Reyes MD - VTE Documentation of Mechanical Device: Graduated compression elastic hosiery Consult Discharge Plan - Plan Referrals: Oni Malcolm CNP [Advanced Practice Nurse] - 04/15/17 9:00 am Partha Walker Jr, MD [Primary Care Provider] - 03/12/17 11:00 am
[2017-03-10] MEDS: 0.9 % Sodium Chloride w KCl 20 MEQ/1,000 ML MLS IVC SCH (14:00)
[2017-03-10] MEDS: Nitroglycerin 25 MG/250 ML INFUS..BTL IVC SCH (17:17)
[2017-03-10] MEDS: Insulin Human Regular 100 UNIT in 0.9 % Sodium Chloride 100 ML IVC SCH (17:17)
[2017-03-10] MEDS ORDERED: D5% in Water 1,000 ML IVC PRN (20:19)
[2017-03-10] MEDS ORDERED: *HR* Dextrose 50 % in Water (Syg) 50 ML SYRINGE IVP PRN (20:19)
[2017-03-10] MEDS ORDERED: Dextrose Gel 15 GM PO PRN ×2 (20:19)
[2017-03-10] MEDS ORDERED: Insulin LISPRO 300 UNITS/3 ML VIAL SQ SCH (21:00)
[2017-03-11] MEDS: niCARdipine 40 MG/200 ML MLS IVC SCH (01:08)
[2017-03-11] MEDS: Nitroglycerin 25 MG/250 ML INFUS..BTL IVC SCH (01:08)
[2017-03-11] MEDS: *HR* Morphine 2 MG/ML SYRINGE IVP PRN (02:03)
[2017-03-11 03:50] LABS: BUN/Creatinine Ratio 18 (6-26); Blood Urea Nitrogen 22 mg/dL (8-26); Calcium 9.2 mg/dL (8.6-10.8); Carbon Dioxide 21 mEq/L (19-29); Chloride 109 mEq/L (98-109); Glucose 156 mg/dL (70-99); Osmolality,Calculated 291 (280-300); Potassium 4.6 mEq/L (3.5-4.5); Sodium 137 mEq/L (136-145); eGFR For African Americans > 60 (> 60); eGFR For Non-African Americans 56 (> 60)
[2017-03-11 03:52] LABS: Basophils % 0.2 %; Immature Granulocytes % 0.4 % (0-4)
[2017-03-11 03:54] LABS: Eosinophils % 0.1 %; Hematocrit 31.3 % (37.5-50.1); Hemoglobin 10.1 g/dL (12.9-16.9); Immature Platelets 5.2 % (1.1-6.1); Lymphocytes # 1.1 K/mcL (0.6-4.6); Lymphocytes % 9.6 %; Mean Corpuscular HGB Conc 32.3 g/dL (31.6-35.5); Mean Corpuscular Hemoglobin 30.3 pg (28.0-33.3); Mean Platelet Volume 10.1 fL (9.4-12.4); Monocytes % 9.1 %; Neutrophils # 9.2 K/mcL (1.6-8.9); Red Blood Count 3.33 M/mcL (4.19-5.50); Red Cell Distribution Width 13.6 % (11.5-14.5); Segmented Neutrophils % 80.6 %
[2017-03-11 03:55] LABS: Platelet Count 80 K/mcL (140-400)
[2017-03-11] MEDS: *HR* Heparin 5,000 UNIT/ML VIAL SQ SCH ×2 (05:21→18:12)
[2017-03-11] MEDS: *HR* OxyCODONE/APAP 5/325 TABLET PO PRN ×3 (05:21→19:33)
[2017-03-11] MEDS: Metoclopramide 10 MG/2 ML VIAL IVP SCH ×3 (05:21→18:12)
[2017-03-11] MEDS: Amiodarone Premix 360 MG/200 ML BAG IVC SCH (05:22)
--- NOTE | 2017-03-11 06:40 | Cardiothoracic Progress Note ---
Date of Encounter: 03/11/17 Time of Encounter: 06:38 - Assessment and plan (1) NSTEMI (non-ST elevated myocardial infarction) Current Visit: Yes Status: Acute The patient is recovering well from his CABG4. He remained hemodynamically stable overnight. He is breathing comfortably. His renal function has returned to normal. The chest tubes had minimal drainage and were removed. The patient be transferred to the stepdown unit when a bed is available. The assessment and plan as outlined above was discussed with the patient and/or family members who expressed understanding and agreement. All questions were answered. - Subjective Procedure(s) Performed: POD#2 S/P CABG4 Interval history: The patient remained hemodynamically stable overnight. He has no complaints. Vital Signs, Last 4 Hours Temp Pulse Resp BP Pulse Ox 03/11/17 06:00 58 16 121/54 91 03/11/17 05:00 57 14 116/53 92 03/11/17 04:04 98.2 F 03/11/17 04:03 16 91 03/11/17 04:00 57 16 122/56 92 03/11/17 03:38 55 03/11/17 03:00 57 16 104/47 91 Oxgyen Flow Rate Oxygen Flow Rate (LPM) 3 Clinical Data, last 8 Hours Output, Chest Tube Drainage 40 Amount [Mediastinal #2] Output, Chest Tube Drainage 0 Amount [Mediastinal #2] Output, Chest Tube Drainage 64 Amount [Mediastinal #1] Output, Chest Tube Drainage 0 Amount [Mediastinal #1] Weight 03/09/17 03/10/17 03/11/17 23:59 23:59 23:59 Weight 85.139 kg - Physical Examination General: Conversant, No Apparent Distress Neck: No JVD, Normal carotid pulses Cardiac: Reg Rate and Rhythm, Normal S1 and S2, No Murmur Incision: No signs of infection, Dry/intact dressing Sternum: Stable Chest tubes: Minimal drainage, Air leak Pacing Wires: In place Lungs: Normal Breath Sounds, No Wheeze, Rales, Rhonchi Neuro: Alert and responsive, No focal deficits noted Vascular: Normal capillary refill Musculoskeletal: No Chest Wall Tenderness Extremities: No Clubbing, No Cyanosis, No Edema - Labs 03/11/17 03:30 03/11/17 03:30 Lab Results, Last 24 hours 03/11/17 03/11/17 03:30 03:30 WBC 11.4 H Hgb 10.1 L D Hct 31.3 L Plt Count 80 L Sodium 137 Potassium 4.6 H Chloride 109 Carbon Dioxide 21 BUN 22 Creatinine 1.23 Glucose 156 H Calcium 9.2 - VTE Documentation of Mechanical Device: Graduated compression elastic hosiery Consult Discharge Plan - Plan Referrals: Oni Malcolm CNP [Advanced Practice Nurse] - 04/15/17 9:00 am Partha Walker Jr, MD [Primary Care Provider] - 03/12/17 11:00 am
[2017-03-11] MEDS ORDERED: Insulin LISPRO 300 UNITS/3 ML VIAL SQ SCH (07:30)
[2017-03-11] MEDS ORDERED: Dextrose Gel 15 GM PO PRN ×2 (08:27)
[2017-03-11] MEDS ORDERED: Insulin Regular, Human 100 UNIT/ML IV PRN (08:27)
[2017-03-11] MEDS ORDERED: Nitroglycerin 0.4 MG TAB.SUBL SL PRN (08:27)
[2017-03-11] MEDS ORDERED: Naloxone 0.4 MG/ML INJ IVP PRN (08:27)
[2017-03-11] MEDS ORDERED: *HR* Dextrose 50 % in Water (Syg) 50 ML SYRINGE IVP PRN (08:27)
[2017-03-11] MEDS ORDERED: Acetaminophen 325 MG TABLET PO PRN (08:27)
[2017-03-11] MEDS ORDERED: *HR* Morphine 2 MG/ML SYRINGE IVP PRN ×2 (08:27)
[2017-03-11] MEDS ORDERED: Ondansetron 4 MG/2 ML VIAL IVP PRN (08:27)
[2017-03-11] MEDS ORDERED: D5% in Water 1,000 ML IVC PRN (08:27)
[2017-03-11] MEDS: Chlorhexidine Rinse 15 ML MOUTHWASH MM SCH ×3 (08:43→19:34)
[2017-03-11] MEDS: Aspirin 81 MG TAB.CHEW PO SCH ×2 (08:44→09:58)
[2017-03-11] MEDS ORDERED: *HR* Amiodarone 200 MG TABLET PO SCH (09:00)
[2017-03-11] MEDS: Pantoprazole 40 MG VIAL IVP SCH (09:59)
[2017-03-11] MEDS: Lactobacillus 1 EACH CAP.SPRINK PO SCH (10:05)
--- NOTE | 2017-03-11 11:11 | Electrocardiograph Report ---
[place] [id number] Test Date: 2017-03-09 Pat Name: Matthew Garcia Department: 109 Room: [facility] Gender: M Supervisor Shop: MARIANA : 1930 Requested By: Emily Flores Order Number: [id number] Reading MD: Torin Roman MD Measurements Intervals [place] Rate: 0 P: ME: 0 QRS: 0 QRSD: 0 T: 0 QT: 0 QTc: 0 Interpretive Statements sinus rhythm with rbbb Borderline left axis deviation Electronically Signed On 03-11-2017 11:10:18 EDT by Torin Roman MD
[2017-03-11] MEDS: Insulin LISPRO 300 UNITS/3 ML VIAL SQ SCH ×3 (11:48→21:05)
--- NOTE | 2017-03-11 13:33 | Internal Med Progress Note ---
Date of Encounter: 03/11/17 Time of Encounter: 08:50 - Assessment and plan (1) NSTEMI (non-ST elevated myocardial infarction) Current Visit: Yes Status: Acute Assessment and plan: Troponin 0.18, 0.16. With non-specific ST/T wave changes on EKG. Seen and followed by Cardiology. Echocardiogram showed LVEF 45-50%. Continue BB, asa, and statin. Patient underwent LHC, found to have triple vessel disease POD#2 s/p CABG x4 - doing well, plan as per Dr Flores (2) HLD (hyperlipidemia) Current Visit: Yes Status: Chronic Assessment and plan: Risk factor modification. Continue statin. Qualifiers: Hyperlipidemia type: mixed hyperlipidemia Qualified Code(s): E78.2 - Mixed hyperlipidemia (3) DVT prophylaxis Current Visit: Yes Status: Acute Assessment and plan: Heparin sc - Subjective Interval history: Patient is awake and alert. S/p CABG x4. Doing well. Sitting up in chair. No acute events or complaints. No fever. Plan as per Dr Flores. Transfer to step- down unit. Generalized weakness. No other acute events. - Constitutional Vitals: Temp Pulse Resp BP Pulse Ox 98.3 F 59 14 139/61 93 03/11/17 11:14 03/11/17 11:00 03/11/17 11:11 03/11/17 10:00 03/11/17 11:11 General appearance: Present: cooperative, A&O X 3, pleasant, no acute distress, answers questions appropriately Exam: generalized weakness - Head Head exam: Present: atraumatic - Neck Neck exam general surgery: Present: supple - Respiratory Respiratory exam: Present: CTAB. Absent: rhonchi, wheezes - Cardiovascular Cardiovascular exam: Present: RRR, +S1, +S2 - GI/Abdominal GI/Abdominal exam: Present: soft. Absent: guarding, tenderness - Extremities Exam Extremities exam: Present: radial pulses palpable and symetrical. Absent: cyanotic, pedal edema - Neurological Exam Neurological exam: Present: alert, oriented X3, no focal deficits Internal Medicine: Result - Labs CBC & Chem 7: 03/11/17 03:30 03/11/17 03:30 Labs: Short CBC 03/11/17 Range/Units 03:30 WBC 11.4 H (4.3-11.1) K/mcL Hgb 10.1 L D (12.9-16.9) g/dL Hct 31.3 L (37.5-50.1) % Plt Count 80 L (140-400) K/mcL Neutrophils # 9.2 H (1.6-8.9) K/mcL BMP 03/11/17 03:30 Sodium 137 Potassium 4.6 H Chloride 109 Carbon Dioxide 21 BUN 22 Creatinine 1.23 Glucose 156 H Calcium 9.2 - ABG Interpretation ABG results: ABG ABG pH 7.37 pH Units (7.32-7.45) 03/09/17 18:12 ABG pCO2 42 mmHg (35-45) 03/09/17 18:12 ABG pO2 75 mmHg (85-104) L 03/09/17 18:12 ABG O2 Saturation 94 % (95-98) L 03/09/17 18:12 PT/INR, D-dimer PT 14.8 Seconds (9.4-12.1) H 03/10/17 03:00 - Impressions Impressions Chest X-Ray 03/10/17 04:00 IMPRESSION: 1. Interval extubation of the previously identified endotracheal and nasogastric tubes, with otherwise stable support apparatus. 2. Mild multifocal atelectasis within the mid left lung and right lung base, with more subtle opacity within the retrocardiac left lower lobe which could represent additional atelectasis, aspiration, or pneumonia. 3. No evident pneumothorax. D/ /10/2017 08:48:41 Uriel Reyes MD / [facility] Interpreting Provider: Uriel Reyes MD - VTE Documentation of Mechanical Device: Graduated compression elastic hosiery Consult Discharge Plan - Plan Referrals: Oni Malcolm CNP [Advanced Practice Nurse] - 04/15/17 9:00 am Partha Walker Jr, MD [Primary Care Provider] - 03/12/17 11:00 am
[2017-03-11] MEDS ORDERED: Melatonin 3 MG TABLET PO PRN (21:00)
[2017-03-12] MEDS: Metoclopramide 10 MG/2 ML VIAL IVP SCH ×3 (00:39→12:42)
[2017-03-12] MEDS: *HR* Heparin 5,000 UNIT/ML VIAL SQ SCH ×2 (04:54→18:46)
[2017-03-12] MEDS: Naphazoline/Pheniramine Opth 15 ML BOTTLE BOTH EYES PRN (06:01)
--- NOTE | 2017-03-12 07:58 | Cardiothoracic Progress Note ---
Date of Encounter: 03/12/17 Time of Encounter: 07:56 - Assessment and plan (1) NSTEMI (non-ST elevated myocardial infarction) Current Visit: Yes Status: Acute The patient is recovering well from his CABG4. He remained hemodynamically stable overnight. He is breathing comfortably. He is ambulating in the hallways. The assessment and plan as outlined above was discussed with the patient and/or family members who expressed understanding and agreement. All questions were answered. - Subjective Procedure(s) Performed: POD#3 S/P CABG4 Interval history: The patient remained hemodynamically stable overnight. He has no complaints. Vital Signs, Last 4 Hours Temp Pulse Resp BP Pulse Ox 03/12/17 04:35 98.4 F 67 18 113/63 92 Oxgyen Flow Rate Oxygen Flow Rate (LPM) 3 Weight 03/10/17 03/11/17 03/12/17 23:59 23:59 23:59 Weight 85.139 kg 85.7 kg - Physical Examination General: Conversant, No Apparent Distress Neck: No JVD, Normal carotid pulses Cardiac: Reg Rate and Rhythm, Normal S1 and S2, No Murmur Incision: No signs of infection, Dry/intact dressing Sternum: Stable Pacing Wires: In place Lungs: Normal Breath Sounds, No Wheeze, Rales, Rhonchi Neuro: Alert and responsive, No focal deficits noted Vascular: Normal capillary refill Musculoskeletal: No Chest Wall Tenderness Extremities: No Clubbing, No Cyanosis, No Edema - Labs 03/11/17 03:30 03/11/17 03:30 - VTE Documentation of Mechanical Device: Graduated compression elastic hosiery Consult Discharge Plan - Plan Referrals: Oni Malcolm CNP [Advanced Practice Nurse] - 04/15/17 9:00 am Partha Walker Jr, MD [Primary Care Provider] - 03/12/17 11:00 am
[2017-03-12] MEDS: Insulin LISPRO 300 UNITS/3 ML VIAL SQ SCH ×4 (08:40→20:01)
[2017-03-12] MEDS: Aspirin 81 MG TAB.CHEW PO SCH (08:54)
[2017-03-12] MEDS: Chlorhexidine Rinse 15 ML MOUTHWASH MM SCH ×2 (08:55→19:52)
[2017-03-12] MEDS: Pantoprazole 40 MG VIAL IVP SCH (08:55)
[2017-03-12] MEDS: *HR* OxyCODONE/APAP 5/325 TABLET PO PRN (08:55)
[2017-03-12] MEDS: Lactobacillus 1 EACH CAP.SPRINK PO SCH (08:55)
--- NOTE | 2017-03-12 11:57 | Internal Med Progress Note ---
Date of Encounter: 03/12/17 Time of Encounter: 09:00 - Assessment and plan (1) NSTEMI (non-ST elevated myocardial infarction) Current Visit: Yes Status: Acute Assessment and plan: Troponin 0.18, 0.16. With non-specific ST/T wave changes on EKG. Seen and followed by Cardiology. Echocardiogram showed LVEF 45-50%. Continue BB, asa, and statin. Patient underwent LHC, found to have triple vessel disease POD#3 s/p CABG x4 - doing well, plan as per Dr Flores (2) HLD (hyperlipidemia) Current Visit: Yes Status: Chronic Assessment and plan: Risk factor modification. Continue statin. Qualifiers: Hyperlipidemia type: mixed hyperlipidemia Qualified Code(s): E78.2 - Mixed hyperlipidemia (3) DVT prophylaxis Current Visit: Yes Status: Acute Assessment and plan: Heparin sc - Time Spent With Patient less than 15 minutes - Subjective Interval history: Patient is awake and alert. S/p CABG x4. Doing well. Sitting up in chair. Tolerating oral diet. No acute events or complaints. No fever. Plan as per Dr Flores. No other acute events. POD#3 - Constitutional Vitals: Temp Pulse Resp BP Pulse Ox 98.4 F 64 18 110/76 92 03/12/17 11:29 03/12/17 11:29 03/12/17 11:29 03/12/17 11:29 03/12/17 11:29 General appearance: Present: cooperative, A&O X 3, pleasant, no acute distress, answers questions appropriately - Head Head exam: Present: atraumatic - ENT ENT exam: Present: mucous membranes moist - Neck Neck exam general surgery: Present: supple - Respiratory Respiratory exam: Present: CTAB. Absent: rhonchi, wheezes - Cardiovascular Cardiovascular exam: Present: RRR, +S1, +S2 Additional comments: sternotomy+ - GI/Abdominal GI/Abdominal exam: Present: soft. Absent: distended, tenderness - Extremities Exam Extremities exam: Present: radial pulses palpable and symetrical. Absent: cyanotic, pedal edema - Neurological Exam Neurological exam: Present: alert, oriented X3, no focal deficits Internal Medicine: Result - Labs CBC & Chem 7: 03/11/17 03:30 03/11/17 03:30 - ABG Interpretation ABG results: ABG ABG pH 7.37 pH Units (7.32-7.45) 03/09/17 18:12 ABG pCO2 42 mmHg (35-45) 03/09/17 18:12 ABG pO2 75 mmHg (85-104) L 03/09/17 18:12 ABG O2 Saturation 94 % (95-98) L 03/09/17 18:12 PT/INR, D-dimer PT 14.8 Seconds (9.4-12.1) H 03/10/17 03:00 - VTE Documentation of Mechanical Device: Graduated compression elastic hosiery Consult Discharge Plan - Plan Referrals: Oni Malcolm CNP [Advanced Practice Nurse] - 04/15/17 9:00 am Emily Flores MD [Partnered Physician] - Partha Walker Jr, MD [Primary Care Provider] - 03/19/17 11:00 am
[2017-03-12] MEDS ORDERED: *HR* Morphine 2 MG/ML SYRINGE IVP PRN (16:18)
[2017-03-12] MEDS ORDERED: Amiodarone Premix 150 MG/100 ML BAG IVPB ONE (18:57)
[2017-03-12] MEDS ORDERED: Amiodarone Premix 360 MG/200 ML BAG IVC ONE (18:57)
[2017-03-13] MEDS: Amiodarone Premix 360 MG/200 ML BAG IVC SCH ×2 (02:16→13:19)
[2017-03-13] MEDS: *HR* OxyCODONE/APAP 5/325 TABLET PO PRN ×2 (02:26→23:12)
[2017-03-13] MEDS: Naphazoline/Pheniramine Opth 15 ML BOTTLE BOTH EYES PRN (02:34)
[2017-03-13] MEDS: *HR* Heparin 5,000 UNIT/ML VIAL SQ SCH ×2 (06:34→17:49)
[2017-03-13] MEDS: Insulin LISPRO 300 UNITS/3 ML VIAL SQ SCH (08:28)
[2017-03-13] MEDS: Lactobacillus 1 EACH CAP.SPRINK PO SCH (09:02)
[2017-03-13] MEDS: Aspirin 81 MG TAB.CHEW PO SCH (09:03)
[2017-03-13] MEDS: Chlorhexidine Rinse 15 ML MOUTHWASH MM SCH (09:03)
--- NOTE | 2017-03-13 09:14 | Cardiothoracic Progress Note ---
Date of Encounter: 03/13/17 Time of Encounter: 09:12 - Assessment and plan (1) NSTEMI (non-ST elevated myocardial infarction) Current Visit: Yes Status: Acute The patient is recovering well from his CABG4. He remained hemodynamically stable overnight. He developed PAF last night and converted to normal sinus rhythm on amiodarone drip. The amiodarone drip will be continued today and he will be started on oral amiodarone tomorrow. He is ambulating in the hallways. The assessment and plan as outlined above was discussed with the patient and/or family members who expressed understanding and agreement. All questions were answered. - Subjective Procedure(s) Performed: POD#4 S/P CABG4 Interval history: The patient remained hemodynamically stable overnight. He has no complaints. Vital Signs, Last 4 Hours Temp Pulse Resp BP Pulse Ox 03/13/17 08:37 64 92 03/13/17 07:47 20 93 03/13/17 07:23 97.8 F 86 16 113/63 93 03/13/17 06:00 81 106/63 Oxgyen Flow Rate Oxygen Flow Rate (LPM) 4 Clinical Data, last 8 Hours Output, Urine Amount 0 Weight 03/11/17 03/12/17 03/13/17 23:59 23:59 23:59 Weight 85.139 kg 85.7 kg 85.4 kg - Physical Examination General: Conversant, No Apparent Distress Neck: No JVD, Normal carotid pulses Cardiac: Reg Rate and Rhythm, Normal S1 and S2, No Murmur Incision: No signs of infection, Dry/intact dressing Sternum: Stable Pacing Wires: In place Lungs: Normal Breath Sounds, No Wheeze, Rales, Rhonchi Neuro: Alert and responsive, No focal deficits noted Vascular: Normal capillary refill Extremities: No Clubbing, No Cyanosis, No Edema - Labs 03/11/17 03:30 03/11/17 03:30 - VTE Documentation of Mechanical Device: Graduated compression elastic hosiery Consult Discharge Plan - Plan Referrals: Oni Malcolm CNP [Advanced Practice Nurse] - 04/15/17 9:00 am Emily Flores MD [Partnered Physician] - Partha Walker Jr, MD [Primary Care Provider] - 03/19/17 11:00 am
--- NOTE | 2017-03-13 10:50 | Internal Med Progress Note ---
Date of Encounter: 03/13/17 Time of Encounter: 09:20 - Assessment and plan (1) NSTEMI (non-ST elevated myocardial infarction) Current Visit: Yes Status: Acute Assessment and plan: Troponin 0.18, 0.16. With non-specific ST/T wave changes on EKG. Seen and followed by Cardiology. Echocardiogram showed LVEF 45-50%. Continue BB, asa, and statin. Patient underwent LHC, found to have triple vessel disease POD#4 s/p CABG x4 - doing well, plan as per Dr Flores (2) Paroxysmal atrial fibrillation Current Visit: Yes Status: Acute Assessment and plan: Now converted to normal sinus rhythm. I will email him continued. We will switch to by mouth amiodarone. Plan as per Dr. Flores. Patient does not have any acute complaints. (3) HLD (hyperlipidemia) Current Visit: Yes Status: Chronic Assessment and plan: Risk factor modification. Continue statin. Qualifiers: Hyperlipidemia type: mixed hyperlipidemia Qualified Code(s): E78.2 - Mixed hyperlipidemia (4) DVT prophylaxis Current Visit: Yes Status: Acute Assessment and plan: Heparin sc . Continue - Time Spent With Patient less than 15 minutes - Subjective Interval history: Patient is awake and alert. S/p CABG x4. Doing well. Sitting up in chair. Tolerating oral diet. No fever. Patient developed paroxysmal atrial fibrillation last night. We will start on IV amiodarone by Dr. Flores. No acute complaints. Now converted to sinus rhythm. Plan as per Dr Flores. No other acute events. POD#4 - Constitutional Vitals: Temp Pulse Resp BP Pulse Ox 97.8 F 64 20 113/63 92 03/13/17 07:23 03/13/17 10:45 03/13/17 07:47 03/13/17 07:23 03/13/17 08:37 General appearance: Present: cooperative, A&O X 3, pleasant, no acute distress, answers questions appropriately - Head Head exam: Present: atraumatic - ENT ENT exam: Present: mucous membranes moist - Neck Neck exam general surgery: Present: supple - Respiratory Respiratory exam: Present: CTAB. Absent: rhonchi, wheezes - Cardiovascular Cardiovascular exam: Present: RRR, +S1, +S2 - GI/Abdominal GI/Abdominal exam: Present: soft. Absent: distended, guarding, tenderness - Extremities Exam Extremities exam: Present: pedal edema, radial pulses palpable and symetrical. Absent: cyanotic - Neurological Exam Neurological exam: Present: alert, oriented X3, no focal deficits Internal Medicine: Result - Labs CBC & Chem 7: 03/11/17 03:30 03/11/17 03:30 - ABG Interpretation ABG results: ABG ABG pH 7.37 pH Units (7.32-7.45) 03/09/17 18:12 ABG pCO2 42 mmHg (35-45) 03/09/17 18:12 ABG pO2 75 mmHg (85-104) L 03/09/17 18:12 ABG O2 Saturation 94 % (95-98) L 03/09/17 18:12 PT/INR, D-dimer PT 14.8 Seconds (9.4-12.1) H 03/10/17 03:00 - VTE Documentation of Mechanical Device: Graduated compression elastic hosiery Consult Discharge Plan - Plan Referrals: Oni Malcolm CNP [Advanced Practice Nurse] - 04/15/17 9:00 am Emily Flores MD [Partnered Physician] - Partha Walker Jr, MD [Primary Care Provider] - 03/19/17 11:00 am
[2017-03-14] MEDS: Amiodarone Premix 360 MG/200 ML BAG IVC SCH (02:16)
[2017-03-14 04:44] LABS: Basophils # 0.1 K/mcL (0.0-0.2); Basophils % 0.6 %; Eosinophils # 0.3 K/mcL (0.0-0.6); Eosinophils % 3.3 %; Hematocrit 29.1 % (37.5-50.1); Hemoglobin 9.5 g/dL (12.9-16.9); Immature Granulocytes % 1.1 % (0-4); Lymphocytes # 1.5 K/mcL (0.6-4.6); Lymphocytes % 18.8 %; Mean Corpuscular HGB Conc 32.6 g/dL (31.6-35.5); Mean Corpuscular Hemoglobin 30.5 pg (28.0-33.3); Mean Corpuscular Volume 93.6 fL (83.0-100.0); Mean Platelet Volume 10.2 fL (9.4-12.4); Monocytes # 0.8 K/mcL (0.0-1.3); Monocytes % 9.8 %; Neutrophils # 5.2 K/mcL (1.6-8.9); Platelet Count 146 K/mcL (140-400); Red Blood Count 3.11 M/mcL (4.19-5.50); Red Cell Distribution Width 13.5 % (11.5-14.5); Segmented Neutrophils % 66.4 %
[2017-03-14 04:52] LABS: BUN/Creatinine Ratio 25 (6-26); Blood Urea Nitrogen 25 mg/dL (8-26); Calcium 9.1 mg/dL (8.6-10.8); Carbon Dioxide 25 mEq/L (19-29); Chloride 108 mEq/L (98-109); Glucose 106 mg/dL (70-99); Osmolality,Calculated 293 (280-300); Potassium 3.5 mEq/L (3.5-4.5); Sodium 139 mEq/L (136-145); eGFR For African Americans > 60 (> 60); eGFR For Non-African Americans > 60 (> 60)
[2017-03-14] MEDS: *HR* Heparin 5,000 UNIT/ML VIAL SQ SCH ×2 (06:44→18:01)
[2017-03-14] MEDS: Naphazoline/Pheniramine Opth 15 ML BOTTLE BOTH EYES PRN ×2 (06:46→20:32)
[2017-03-14] MEDS: Aspirin 81 MG TAB.CHEW PO SCH (07:49)
[2017-03-14] MEDS: Lactobacillus 1 EACH CAP.SPRINK PO SCH (07:49)
--- NOTE | 2017-03-14 09:02 | Electrocardiograph Report ---
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
--- NOTE | 2017-03-14 10:11 | Internal Med Progress Note ---
Date of Encounter: 03/14/17 Time of Encounter: 09:10 - Assessment and plan (1) NSTEMI (non-ST elevated myocardial infarction) Current Visit: Yes Status: Acute Assessment and plan: Troponin 0.18, 0.16. With non-specific ST/T wave changes on EKG. Seen and followed by Cardiology. Echocardiogram showed LVEF 45-50%. Continue BB, asa, and statin. Patient underwent LHC, found to have triple vessel disease POD#5, s/p CABG x4 - doing well, plan as per Dr Flores (2) Paroxysmal atrial fibrillation Current Visit: Yes Status: Acute Assessment and plan: Now converted to NSR. I will email him continued. switch to PO amiodarone. Plan as per Dr. Flores. Patient does not have any acute complaints. (3) HLD (hyperlipidemia) Current Visit: Yes Status: Chronic Assessment and plan: Risk factor modification. Continue statin Qualifiers: Hyperlipidemia type: mixed hyperlipidemia Qualified Code(s): E78.2 - Mixed hyperlipidemia (4) DVT prophylaxis Current Visit: Yes Status: Acute Assessment and plan: Heparin sc . Continue - Subjective Interval history: Patient is awake and alert. S/p CABG x4. Doing well. Tolerating oral diet. No fever. No acute complaints. Now converted to sinus rhythm. Switch to PO Amiodarone. Plan as per Dr Flores. No other acute events. POD#5 - Constitutional Vitals: Temp Pulse Resp BP Pulse Ox 97.6 F 73 16 108/56 92 03/14/17 07:33 03/14/17 08:02 03/14/17 07:54 03/14/17 07:33 03/14/17 07:54 General appearance: Present: cooperative, A&O X 3, pleasant, no acute distress, answers questions appropriately - Head Head exam: Present: atraumatic - ENT ENT exam: Present: mucous membranes moist - Neck Neck exam general surgery: Present: supple - Respiratory Respiratory exam: Present: CTAB. Absent: rhonchi, wheezes - Cardiovascular Cardiovascular exam: Present: RRR, +S1, +S2 - GI/Abdominal GI/Abdominal exam: Present: soft. Absent: guarding, tenderness - Extremities Exam Extremities exam: Present: pedal edema (mild), radial pulses palpable and symetrical. Absent: cyanotic - Neurological Exam Neurological exam: Present: alert, oriented X3, no focal deficits Internal Medicine: Result - Labs CBC & Chem 7: 03/14/17 04:15 03/14/17 04:15 Labs: Short CBC 03/14/17 Range/Units 04:15 WBC 7.8 (4.3-11.1) K/mcL Hgb 9.5 L (12.9-16.9) g/dL Hct 29.1 L (37.5-50.1) % Plt Count 146 D (140-400) K/mcL Neutrophils # 5.2 (1.6-8.9) K/mcL BMP 03/14/17 04:15 Sodium 139 Potassium 3.5 Chloride 108 Carbon Dioxide 25 BUN 25 Creatinine 0.99 Glucose 106 H Calcium 9.1 - ABG Interpretation ABG results: ABG ABG pH 7.37 pH Units (7.32-7.45) 03/09/17 18:12 ABG pCO2 42 mmHg (35-45) 03/09/17 18:12 ABG pO2 75 mmHg (85-104) L 03/09/17 18:12 ABG O2 Saturation 94 % (95-98) L 03/09/17 18:12 PT/INR, D-dimer PT 14.8 Seconds (9.4-12.1) H 03/10/17 03:00 - VTE Documentation of Mechanical Device: Graduated compression elastic hosiery Consult Discharge Plan - Plan Referrals: Oni Malcolm CNP [Advanced Practice Nurse] - 04/15/17 9:00 am Emily Flores MD [Partnered Physician] - Partha Walker Jr, MD [Primary Care Provider] - 03/19/17 11:00 am
--- NOTE | 2017-03-14 10:38 | Cardiothoracic Progress Note ---
Date of Encounter: 03/14/17 Time of Encounter: 10:37 - Assessment and plan (1) NSTEMI (non-ST elevated myocardial infarction) Current Visit: Yes Status: Acute The assessment and plan as outlined above was discussed with the patient and/or family members who expressed understanding and agreement. All questions were answered. We will switch the patient from IV to by mouth amiodarone. Hopefully, he can be discharged soon. - Subjective Interval history: The patient has no complaints. Vital Signs, Last 4 Hours Temp Pulse Resp BP Pulse Ox 03/14/17 08:02 73 03/14/17 07:54 16 92 03/14/17 07:33 97.6 F 55 18 108/56 92 Oxgyen Flow Rate Oxygen Flow Rate (LPM) 3 Weight 03/12/17 03/13/17 03/14/17 23:59 23:59 23:59 Weight 85.7 kg 85.4 kg 84.1 kg Lungs are clear to percussion and auscultation. Heart is in a normal sinus rhythm. All incisions are healing well without signs of infection and the sternum is stable. - Labs 03/14/17 04:15 03/14/17 04:15 Lab Results, Last 24 hours 03/14/17 03/14/17 04:15 04:15 WBC 7.8 Hgb 9.5 L Hct 29.1 L Plt Count 146 D Sodium 139 Potassium 3.5 Chloride 108 Carbon Dioxide 25 BUN 25 Creatinine 0.99 Glucose 106 H Calcium 9.1 - VTE Documentation of Mechanical Device: Graduated compression elastic hosiery Consult Discharge Plan - Plan Referrals: Oni Malcolm CNP [Advanced Practice Nurse] - 04/15/17 9:00 am Emily Flores MD [Partnered Physician] - Partha Walker Jr, MD [Primary Care Provider] - 03/19/17 11:00 am
[2017-03-14] MEDS: *HR* OxyCODONE/APAP 5/325 TABLET PO PRN (20:30)
[2017-03-14] MEDS: *HR* Amiodarone 200 MG TABLET PO SCH (20:30)
[2017-03-15] MEDS: *HR* Heparin 5,000 UNIT/ML VIAL SQ SCH ×2 (04:28→17:07)
[2017-03-15] MEDS: *HR* OxyCODONE/APAP 5/325 TABLET PO PRN ×3 (04:28→20:17)
[2017-03-15] MEDS: Lactobacillus 1 EACH CAP.SPRINK PO SCH (08:00)
[2017-03-15] MEDS: Aspirin 81 MG TAB.CHEW PO SCH (08:01)
[2017-03-15] MEDS: *HR* Amiodarone 200 MG TABLET PO SCH ×2 (08:01→20:16)
--- NOTE | 2017-03-15 09:09 | Cardiothoracic Progress Note ---
Date of Encounter: 03/15/17 Time of Encounter: 09:07 - Assessment and plan (1) NSTEMI (non-ST elevated myocardial infarction) Current Visit: Yes Status: Acute I will increase his Lopressor dosage. Hopefully he can be discharged on Thursday. - Subjective Interval history: The patient has no complaints and is tolerating his diet well. Vital Signs, Last 4 Hours Temp Pulse Resp BP Pulse Ox 03/15/17 08:18 16 92 03/15/17 08:03 61 03/15/17 07:41 98.0 F 58 16 122/59 92 Oxgyen Flow Rate Oxygen Flow Rate (LPM) 1 Clinical Data, last 8 Hours Output, Urine Amount 350 Weight 03/13/17 03/14/17 03/15/17 23:59 23:59 23:59 Weight 85.4 kg 84.1 kg 83.1 kg Lungs are clear to percussion and auscultation. Heart is in a normal sinus rhythm, although he has runs of A. fib. All incisions are healing well without signs of infection and the sternum is stable. - Labs 03/14/17 04:15 03/14/17 04:15 - VTE Documentation of Mechanical Device: Graduated compression elastic hosiery Consult Discharge Plan - Plan Referrals: Oni Malcolm CNP [Advanced Practice Nurse] - 04/15/17 9:00 am Emily Flores MD [Partnered Physician] - Partha Walker Jr, MD [Primary Care Provider] - 03/19/17 11:00 am
--- NOTE | 2017-03-15 10:36 | Internal Med Progress Note ---
Date of Encounter: 03/15/17 Time of Encounter: 09:10 - Assessment and plan (1) NSTEMI (non-ST elevated myocardial infarction) Current Visit: Yes Status: Acute Assessment and plan: Troponin 0.18, 0.16. With non-specific ST/T wave changes on EKG. Echocardiogram showed LVEF 45-50%. Continue BB, ASA, and statin. Patient underwent LHC, found to have triple vessel disease POD#6, s/p CABG x4 - doing well, plan as per Dr Flores (2) Paroxysmal atrial fibrillation Current Visit: Yes Status: Acute Assessment and plan: Now converted to NSR. switch to PO amiodarone. Plan as per Dr. Flores and Dr Ramirez. Patient does not have any acute complaints. (3) HLD (hyperlipidemia) Current Visit: Yes Status: Chronic Assessment and plan: Risk factor modification. Continue Lipitor Qualifiers: Hyperlipidemia type: mixed hyperlipidemia Qualified Code(s): E78.2 - Mixed hyperlipidemia (4) DVT prophylaxis Current Visit: Yes Status: Acute Assessment and plan: Heparin sc . Continue - Time Spent With Patient less than 15 minutes - Subjective Interval history: Patient is awake and alert. S/p CABG x4. Doing well. Tolerating oral diet. No fever. Now converted to NSR. On PO Amiodarone. Plan as per Dr Flores. No other acute events or complaints. POD#6. - Constitutional Vitals: Temp Pulse Resp BP Pulse Ox 98.0 F 61 16 122/59 92 03/15/17 07:41 03/15/17 08:03 03/15/17 08:18 03/15/17 07:41 03/15/17 08:18 General appearance: Present: cooperative, A&O X 3, pleasant, no acute distress, answers questions appropriately - Head Head exam: Present: atraumatic - Neck Neck exam general surgery: Present: supple - Respiratory Respiratory exam: Present: CTAB. Absent: rhonchi, wheezes - Cardiovascular Cardiovascular exam: Present: RRR, +S1, +S2 - GI/Abdominal GI/Abdominal exam: Present: soft. Absent: guarding, tenderness - Extremities Exam Extremities exam: Present: radial pulses palpable and symetrical. Absent: cyanotic, pedal edema - Neurological Exam Neurological exam: Present: alert, oriented X3, no focal deficits Internal Medicine: Result - Labs CBC & Chem 7: 03/14/17 04:15 03/14/17 04:15 - ABG Interpretation ABG results: ABG ABG pH 7.37 pH Units (7.32-7.45) 03/09/17 18:12 ABG pCO2 42 mmHg (35-45) 03/09/17 18:12 ABG pO2 75 mmHg (85-104) L 03/09/17 18:12 ABG O2 Saturation 94 % (95-98) L 03/09/17 18:12 PT/INR, D-dimer PT 14.8 Seconds (9.4-12.1) H 03/10/17 03:00 - VTE Documentation of Mechanical Device: Graduated compression elastic hosiery Consult Discharge Plan - Plan Referrals: Oni Malcolm CNP [Advanced Practice Nurse] - 04/15/17 9:00 am Emily Flores MD [Partnered Physician] - Partha Walker Jr, MD [Primary Care Provider] - 03/19/17 11:00 am
[2017-03-15] MEDS: Naphazoline/Pheniramine Opth 15 ML BOTTLE BOTH EYES PRN (20:22)
[2017-03-16 01:26] LABS: Basophils # 0.1 K/mcL (0.0-0.2); Basophils % 0.5 %; Eosinophils # 0.5 K/mcL (0.0-0.6); Eosinophils % 4.4 %; Hemoglobin 9.9 g/dL (12.9-16.9); Immature Granulocytes % 1.4 % (0-4); Lymphocytes # 1.8 K/mcL (0.6-4.6); Lymphocytes % 17.3 %; Mean Corpuscular HGB Conc 31.9 g/dL (31.6-35.5); Mean Corpuscular Hemoglobin 30.4 pg (28.0-33.3); Mean Corpuscular Volume 95.1 fL (83.0-100.0); Mean Platelet Volume 10.1 fL (9.4-12.4); Monocytes # 0.7 K/mcL (0.0-1.3); Monocytes % 6.2 %; Neutrophils # 7.4 K/mcL (1.6-8.9); Platelet Count 239 K/mcL (140-400); Red Blood Count 3.26 M/mcL (4.19-5.50); Red Cell Distribution Width 14.2 % (11.5-14.5); Segmented Neutrophils % 70.2 %
[2017-03-16 01:37] LABS: BUN/Creatinine Ratio 25 (6-26); Blood Urea Nitrogen 26 mg/dL (8-26); Calcium 9.3 mg/dL (8.6-10.8); Carbon Dioxide 23 mEq/L (19-29); Chloride 107 mEq/L (98-109); Glucose 127 mg/dL (70-99); Osmolality,Calculated 292 (280-300); Potassium 3.7 mEq/L (3.5-4.5); Sodium 138 mEq/L (136-145); eGFR For African Americans > 60 (> 60); eGFR For Non-African Americans > 60 (> 60)
[2017-03-16] MEDS: *HR* Heparin 5,000 UNIT/ML VIAL SQ SCH (06:25)
[2017-03-16] MEDS: Naphazoline/Pheniramine Opth 15 ML BOTTLE BOTH EYES PRN (06:29)
[2017-03-16 07:27] VITALS: BP 121/62
[2017-03-16] MEDS: Aspirin 81 MG TAB.CHEW PO SCH (07:44)
[2017-03-16] MEDS: *HR* Amiodarone 200 MG TABLET PO SCH (07:44)
[2017-03-16] MEDS: Lactobacillus 1 EACH CAP.SPRINK PO SCH (07:44)
--- NOTE | 2017-03-16 14:36 | Discharge Summary ---
Date of Encounter: 03/16/17 Time of Encounter: 14:31 - Discharge Diagnosis (1) NSTEMI (non-ST elevated myocardial infarction) Priority: Primary Status: Acute - Discharge Medications Prescriptions: OxyCODONE/APAP 5/325 [Percocet 5/325 MG] 1 each PO Q4HR PRN #30 tablet PRN Reason: Moderate Pain Amiodarone [Cordarone] 200 mg PO DAILY #30 tablet Atorvastatin [Lipitor] 40 mg PO HS #30 tablet Lisinopril [Zestril] 5 mg PO DAILY #30 tablet Metoprolol [Lopressor] 25 mg PO BID #60 tablet Home Medications: Calcium Carbonate/Vitamin D3 [Calcium 600 + Vit D Softgel] 1 tab PO DAILY [History] Glucosamn/[place]/C/Mn/[place] [[facility] Glucosamine Chondroitin Tb] 1 tab PO DAILY 04/18/16 [History] Multivitamin [Multi-Day Vitamins] 1 tab PO DAILY 04/18/16 [History] Aspirin 81 mg PO DAILY 03/02/17 [History] L. Acidophilus/Pectin, [place] [Acidophilus Probiotic Capsule] 1 cap PO DAILY [History] Nitroglycerin [Nitrostat] 0.4 mg SL AD PRN 03/02/17 [History] Amiodarone [Cordarone] 200 mg PO DAILY #30 tablet 03/16/17 [Rx] Atorvastatin [Lipitor] 40 mg PO HS #30 tablet 03/16/17 [Rx] Lisinopril [Zestril] 5 mg PO DAILY #30 tablet 03/16/17 [Rx] Metoprolol [Lopressor] 25 mg PO BID #60 tablet 03/16/17 [Rx] OxyCODONE/APAP 5/325 [Percocet 5/325 MG] 1 each PO Q4HR PRN #30 tablet 03/16/17 [Rx] Allergies/Adverse Reactions: Allergies codeine Adverse Reaction (Unknown, Verified 04/18/16 10:30) other feels like he is floating Date of admission: 03/01/17 22:31 Primary care physician: Partha Walker Jr, MD Consults: 03/02/17 12:35 Consult to Cardiothoracic Surgery [CONS] Routine Consulting Provider: Cardiothoracic Surgery Lakeisha Reason for Consult: cabg Call Completed: Yes 03/09/17 11:30 Consult to Cardiac Rehabilitation-Phase1 [CONS] Routine Comment: Reason for Consult: Post open heart Call Completed: Yes 03/12/17 17:38 Consult to Occupational Therapy [CONS] Routine Comment: Evaluate, develop and implement POC Reason for Consult: Recent CABG Consult to Physical Therapy [CONS] Routine Comment: Evaluate, develop and implement POC Reason for Consult: recent CABG Consult to Project Builder [CONS] Routine Reason for SW Consult: recent CABG, from home, now with oxygen requirement Procedure(s) Performed: March 09, 2017. Coronary artery bypass grafting 4, utilizing his left internal mammary artery. Discharging clinician: Omari Ramirez Anticipated date of discharge: 03/16/17 - Patient Status Disposition: Home, Self-Care Condition: Good Functional capacity at discharge: independent ambulation Overall status at discharge: patient is progressing back to baseline - Discharge Instructions Instructions: Amiodarone (By mouth), Myocardial Infarction (DC), Coronary Artery Disease (GEN), Coronary Artery Bypass Graft (DC) Follow Up With: Oni Malcolm CNP [Advanced Practice Nurse] - 04/15/17 9:00 am Emily Flores MD [Partnered Physician] - 04/23/17 1:00 pm Partha Walker Jr, MD [Primary Care Provider] - 03/19/17 11:00 am - Hospital Course Hospital course: Mr. Garcia is a 87 year old male The patient is an 87-year-old gentleman who presented with chest pain and a positive troponin. Cardiac catheterization revealed severe coronary artery disease and he was referred for surgery. He had received Plavix and this was stopped prior to surgery. On March 09, 2017, my partner, Dr. Flores took the patient to the operating room for coronary artery bypass grafting 4, utilizing his left internal mammary artery. Postoperatively, the patient had a slight bump in his creatinine, but this returned to normal he did have atrial fibrillation and was started on IV amiodarone, followed by by mouth amiodarone. The patient otherwise did well and was discharged on March 16. At that time, he was afebrile. Lungs were clear to percussion and auscultation. Heart was in a normal sinus rhythm. All incisions were healing well without signs of infection and the sternum was stable. Medications are on the [employer] rec and include Percocet for pain. I did check the [place] automated Rx reporting system. The patient was given a one-week supply any was postoperative. Appropriate precautions were given. He was to walk as much as possible, but to avoid heavy lifting for a total of 3 months after surgery. He is to avoid driving for 1 month. He was to return to his previous a regular diet. He was to follow up and see Dr. Flores in the office in 4 weeks as directed. He was to follow up and see his pony ride operator and family doctor as directed. He was to call sooner for any difficulties. - Time Spent with Patient Total time spent providing and/or coordinating discharge services: Physical Examination Vital Signs, Last 4 Hours Temp Pulse Resp Pulse Ox 03/16/17 11:43 98.1 F 16 92 03/16/17 10:40 63 Open [facility] Aspirin Cont/Prescribed at DC: Yes Beta Isaac Cont/Prescribed at DC: Yes Statin Cont/Prescribed at DC: Yes KANDY/ARB Cont/Prescribed at DC: Yes - VTE Documentation of Mechanical Device: Graduated compression elastic hosiery
--- NOTE | 2017-03-16 15:11 | Internal Med Progress Note ---
Date of Encounter: 03/16/17 Time of Encounter: 09:50 - Assessment and plan (1) NSTEMI (non-ST elevated myocardial infarction) Current Visit: Yes Status: Acute Assessment and plan: Troponin 0.18, 0.16. With non-specific ST/T wave changes on EKG. Echocardiogram showed LVEF 45-50%. Continue BB, ASA, and statin. 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 switch to PO amiodarone. Plan as per Dr. Flores and Dr Ramirez. Patient does not have any acute complaints. (3) HLD (hyperlipidemia) Current Visit: Yes Status: Chronic Assessment and plan: Risk factor modification. Continue Lipitor. Qualifiers: Hyperlipidemia type: mixed hyperlipidemia Qualified Code(s): E78.2 - Mixed hyperlipidemia - Time Spent With Patient less than 15 minutes - Subjective Interval history: Patient is awake and alert. S/p CABG x4. Doing well. Tolerating oral diet. No fever. Now converted to NSR. On PO Amiodarone. No other acute events or complaints. POD#7. Stable for d/c home today. Dr Ramirez has discharged the patient. - Constitutional Vitals: Temp Pulse Resp BP Pulse Ox 98.1 F 63 16 121/62 92 03/16/17 11:43 03/16/17 10:40 03/16/17 11:43 03/16/17 07:21 03/16/17 11:43 General appearance: Present: cooperative, A&O X 3, pleasant, no acute distress, answers questions appropriately - Head Head exam: Present: atraumatic - Neck Neck exam general surgery: Present: supple - Respiratory Respiratory exam: Present: CTAB. Absent: rhonchi, tachypnea - Cardiovascular Cardiovascular exam: Present: RRR, +S1, +S2 - GI/Abdominal GI/Abdominal exam: Present: soft. Absent: guarding, tenderness - Extremities Exam Extremities exam: Present: radial pulses palpable and symetrical. Absent: cyanotic, pedal edema - Neurological Exam Neurological exam: Present: alert, oriented X3, no focal deficits Internal Medicine: Result - Labs CBC & Chem 7: 03/16/17 00:13 03/16/17 00:13 Labs: Short CBC 03/16/17 Range/Units 00:13 WBC 10.6 (4.3-11.1) K/mcL Hgb 9.9 L (12.9-16.9) g/dL Hct 31.0 L (37.5-50.1) % Plt Count 239 D (140-400) K/mcL Neutrophils # 7.4 (1.6-8.9) K/mcL BMP 03/16/17 00:13 Sodium 138 Potassium 3.7 Chloride 107 Carbon Dioxide 23 BUN 26 Creatinine 1.06 Glucose 127 H Calcium 9.3 - ABG Interpretation ABG results: ABG ABG pH 7.37 pH Units (7.32-7.45) 03/09/17 18:12 ABG pCO2 42 mmHg (35-45) 03/09/17 18:12 ABG pO2 75 mmHg (85-104) L 03/09/17 18:12 ABG O2 Saturation 94 % (95-98) L 03/09/17 18:12 PT/INR, D-dimer PT 14.8 Seconds (9.4-12.1) H 03/10/17 03:00 - VTE Documentation of Mechanical Device: Graduated compression elastic hosiery Consult Discharge Plan - Plan Instructions: Metoprolol (By mouth), Lisinopril (By mouth), Amiodarone (By mouth), Atorvastatin (By mouth), Myocardial Infarction (DC), Coronary Artery Disease (GEN), Coronary Artery Bypass Graft (DC) Additional Instructions: If you have questions that are not answered by these instructions, please call your nurse or doctor. * Do not drive for 1 month or until allowed by your surgeon. * If you smoke, STOP SMOKING. Smoking or tobacco use significantly increases your risk of heart disease because nicotine causes the arteries to narrow or constrict. It also causes fats to stick to the artery. Your chances of occluding your new bypasses or having a heart attack are greatly increased if you continue to smoke. For more information call the patient education line for smoking cessation 2-251-QHNN-NOW. * Continue to use your incentive Spirometry about 6 times each day (1 use = 5 to 10 breaths) for 1 month. This important to help prevent pneumonia. * Follow your Phase I Cardiac Rehab Activity Guide. * You may climb stairs, one step at a time, as you are able. * Do not lift more than 10 pounds (1/2 gallon of milk = 5 pounds), vacuum, sweep , shovel snow, rake leaves, or do anything that could pull on the chest for 2 months. * You may resume sexual activity when you feel ready. * Continue to wear KYLER hose during the day for about 1 month. Remove and wash daily in mild detergent. * Gently wash incision with soap and water daily. Rinse well and pat dry with a clean towel. Do not soak your incisions under water. Do not use any powders, lotions, creams or ointments on your incision. * Chest tube sites may drain fluid for 1-2 weeks and can be covered with dry gauze. They also may become reddened or inflamed as they heal and can be cleaned twice a day with hydrogen peroxide. * Take your pulse once a day. If it is less than 60 or greater than 110 beats per minute at rest, call your Lead Java Programmer * Take your temperature by mouth once a day for 2 weeks. Call your surgeon of it is above 101 degrees. * Call the surgeon if you notice drainage or redness at your incision lines. * Weigh yourself each day for 2 weeks. Call your doctor if you notice and increase in your weight of 3 pounds or more in a day or increasing shortness of breath. * If you experience chest pain, shortness of breath, dizziness or extreme tiredness, stop and rest. Please notify your doctor if you experience any of these symptoms. * If you experience any of these symptoms and they are not relieved with rest, please call 911. Referrals: Oni Malcolm CNP [Advanced Practice Nurse] - 04/15/17 9:00 am Emily Flores MD [Partnered Physician] - 04/23/17 1:00 pm Partha Walker Jr, MD [Primary Care Provider] - 03/19/17 11:00 am Prescriptions: OxyCODONE/APAP 5/325 [Percocet 5/325 MG] 1 each PO Q4HR PRN #30 tablet PRN Reason: Moderate Pain Amiodarone [Cordarone] 200 mg PO DAILY #30 tablet Atorvastatin [Lipitor] 40 mg PO HS #30 tablet Lisinopril [Zestril] 5 mg PO DAILY #30 tablet Metoprolol [Lopressor] 25 mg PO BID #60 tablet
== END 2017-03-16 15:27 | disposition home or self-care (01) | DRG 234 ==
LOC: 2NENU 18:34 → EMEROO 18:34 → 2NENU 20:25 → ICNU 03-09 07:44 → 2NNU 03-11 14:44
PROVIDERS: ADMIT Internal Medicine Sleep Medicine; ATTEND Thoracic Surgery (Cardiothoracic Vascular Surgery)